=== PATIENT | female | born 1940 | race Caucasian/White ===

== ENCOUNTER 2020-03-11 02:19 | Inpatient (IN) | payer MEDICARE, OTHER, MEDICAID ==
[2020-03-11] MEDS ORDERED: Sodium Chloride 0.9% 1,000 ML IV SCH (02:30)
--- NOTE | 2020-03-11 02:35 | EDM.PDOC ---
ED HPI GENERAL MEDICAL PROBLEM - General Chief Complaint: Behavioral/Psych Stated Complaint: Hallucinating Time Seen by Provider: 03/11/20 02:20 Source of Information: Reports: Patient, EMS, Detention Records History Limitations: Reports: Other (Hallucinations and confusion) - History of Present Illness INITIAL COMMENTS - FREE TEXT/NARRATIVE: Patient to the emergency department by EMS from [facility] with advise she is been having increased confusion and hallucinations for the last couple of days. The patient also has not been taking her medication or fluids well today. The patient denies any complaints however she does appear to be seeing people who are not here including someone called Arie. The patient does wear oxygen at 2 L nasal cannula [id number] which is normal for her. Onset: Gradual Duration: Day(s): Severity: Mild Improves with: Reports: None Worsens with: Reports: None Associated Symptoms: Reports: Confusion. Denies: Cough, Nausea/Vomiting, Shortness of Breath Treatments P[employer]IV[employer]ER: Reports: Other (see below) (none) - Related Data Allergies Allergy/AdvReac Type Severity Reaction Status Date / Time tetanus and diphtheria AdvReac Mild Rash Verified 07/30/13 16:42 toxoids [Tetanus&Diphtheria Toxoid] amlodipine besylate AdvReac Cough Verified 01/11/20 13:32 [From Norvasc] clonidine HCl [From Catapres] AdvReac Cough Verified 01/11/20 13:32 gabapentin AdvReac Cough Verified 01/11/20 13:32 irbesartan [From Avapro] AdvReac Cough Verified 01/11/20 13:32 losartan potassium AdvReac Cough Verified 01/11/20 13:32 [From Cozaar] pregabalin [From Lyrica] AdvReac Cough Verified 01/11/20 13:32 Home Meds: Home Meds Aspirin [Halfprin] 81 mg PO DAILY 04/27/15 [History] Acetaminophen [Tylenol] 650 mg PO Q4HR 04/28/15 [History] Fluticasone Propionate [Flonase] 1 sprays NASBOTH DAILY PRN 04/28/15 [History] diphenhydrAMINE [Benadryl] 25 mg PO Q6H PRN 04/28/15 [History] DULoxetine [Cymbalta] 30 mg PO DAILY 05/03/15 [History] Magnesium Oxide 250 mg PO BIDM 05/03/15 [History] Nystatin [Nystatin Crm] 30 gm TOP BID 05/03/15 [History] Sennosides/Docusate Sodium [Senna-S Tablet] 1 each PO BID PRN 05/03/15 [History] Sodium Chloride 1 gm PO DAILY 05/03/15 [History] carvediloL [Coreg] 3.125 mg PO BID 05/03/15 [History] Acetaminophen [Tylenol] 650 mg PO Q4H PRN #0 tablet 05/07/15 [Rx] Cefdinir 300 mg PO BID #14 capsule 05/07/15 [Rx] Loperamide [Imodium] 2 mg PO Q4H PRN #0 cap 05/07/15 [Rx] Magnesium Hydroxide [Milk of Magnesia] 30 ml PO DAILY PRN #0 cup 05/07/15 [Rx] Menthol/Methyl Salicylate [Icy Hot] 1 applic TOP BID PRN #0 tube 05/07/15 [Rx] Potassium Chloride [Klor-Con 10] 20 meq PO TIDMEALS #0 05/07/15 [Rx] QUEtiapine [SEROquel] 25 mg PO BEDTIME #0 05/07/15 [Rx] Ranitidine [Zantac] 150 mg PO DAILY #0 05/07/15 [Rx] fentaNYL [Duragesic] 25 mcg TRDERM Q72H #10 patch 05/07/15 [Rx] oxyCODONE 5 mg PO Q4H #30 tablet 05/07/15 [Rx] Past Medical History 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 Denies: Abdominal Pain, Nausea, Vomiting : Reports: No Symptoms Musculoskeletal: Reports: No Symptoms Skin: Reports: No Symptoms Neurological: Reports: Confusion Psychiatric: Reports: Hallucinations ED EXAM, GENERAL - Physical Exam Exam: See Below Exam Limited By: No Limitations General Appearance: Alert, WD/WN, No Apparent Distress Head: Atraumatic, Normocephalic Neck: Normal Inspection, Supple, Non-Tender Respiratory/Chest: No Respiratory Distress, Lungs Clear, Normal Breath Sounds, Chest Non-Tender Cardiovascular: Normal Peripheral Pulses, Regular Rate, Rhythm, Systolic Murmur Peripheral Pulses: 2+: Radial (L) GI/Abdominal: Soft, Non-Tender Back Exam: Normal Inspection Extremities: Normal Inspection, Normal Capillary Refill Neurological: Alert, Disoriented Skin Exam: Warm, Dry, Intact, Normal Color Course - Vital Signs Text/Narrative:: Patient was evaluated emergency department, the white count is slightly el evated, general chemistries are essentially negative magnesium is low. Chest x- ray is a poor story feeling makes it difficult to interpret however there is no obvious infiltrates. The radiology reading still pending. The patient does have IV normal saline at 80 mL an hour. The patient be given Rocephin 2 g IV now and 1 g every 24 hours after that. The patient does have a urinary tract infection I suspect this is causing her altered mental status. Therefore, the patient will be admitted to the hospital for IV antibiotics, IV fluids and replacement of her magnesium. The patient will have repeat labs tomorrow and changes to her orders will be made as indicated. I suspect that the patient will be in the hospital for greater than 2 days. - Orders/Labs/Meds Orders: Active Orders 24 hr Category Date Time Status Patient Status Manage Transfer [TRANSFER] Routine ADT 03/11/20 03:02 Ordered CXR [Chest 1V Frontal] [CR] Stat Exams 03/11/20 02:29 Taken CULTURE URINE [RM] Stat Lab 03/11/20 02:50 Received Sodium Chloride 0.9% [Normal Saline] 1,000 ml Med 03/11/20 02:30 Active IV ASDIRECTED Resuscitation Status Stat Resus Stat 03/11/20 03:15 Ordered Medication Orders Sodium Chloride (Normal Saline) 1,000 mls @ 100 mls/hr IV ASDIRECTED DUSTY Last Admin: 03/11/20 03:07 Dose: 100 mls/hr Documented by: Labs: Laboratory Tests 03/11/20 03/11/20 03/11/20 Range/Units 02:41 02:41 02:50 WBC 10.4 H (5.0-10.0) 10^3/uL RBC 4.53 (4.00-5.50) 10^6/uL Hgb 14.5 (12.0-16.0) g/dL Hct 45.7 (37.0-47.0) % MCV 100.9 H (82.0-94.0) fL MCH 32.0 (27.0-32.0) pg MCHC 31.7 L (33.0-38.0) g/dL RDW Coeff of Norma 13.1 (11.0-15.0) % Plt Count 212 (150-400) 10^3/uL Neut % (Auto) 69.8 (35-85) % Lymph % (Auto) 21.1 (10-55) % [place] % (Auto) 7.0 (0-16) % Eos % (Auto) 2.0 (0-5) % Baso % (Auto) 0.1 (0-3) % Neut # (Auto) 7.24 H (1.80-7.00) 10^3/uL Lymph # (Auto) 2.19 (1.00-4.80) 10^3/uL [place] # (Auto) 0.73 (0.00-0.80) 10^3/uL Eos # (Auto) 0.21 (0.00-0.45) 10^3/uL Baso # (Auto) 0.01 10^3/uL Sodium 140 (136-145) mEq/L Potassium 3.8 (3.5-5.0) mEq/L Chloride 101 (98-106) mEq/L Carbon Dioxide 37 H (21-32) mmol/L BUN 13 (7-18) mg/dL Creatinine 0.7 (0.6-1.0) mg/dL Est Cr Clr Drug Dosing TNP Estimated GFR (MDRD) > 60 (>=60) mL/min Glucose 104 H (75-99) mg/dL Calcium 8.9 (8.4-10.1) mg/dL Magnesium 1.6 L (1.8-2.4) mg/dL Total Bilirubin 0.8 (0.0-1.0) mg/dL AST 32 (15-37) U/L ALT 9 L (12-78) U/L Alkaline Phosphatase 156 H (46-116) U/L Total Protein 8.3 H (6.4-8.2) g/dL Albumin 2.7 L (3.4-5.0) g/dL Urine Color Dark yellow (YELLOW) Urine Appearance Slightly cloudy (CLEAR) Urine pH 5.5 (4.5-8.0) Ur Specific [place] >= 1.030 H (1.003-1.020) Urine Protein Negative (NEGATIVE) mg/dL Urine Glucose (UA) Negative (NEGATIVE) mg/dL Urine Ketones Negative (NEGATIVE) mg/dL Urine Occult Blood Small H (NEGATIVE) Urine Nitrite Positive H (NEGATIVE) Urine Bilirubin Negative (NEGATIVE) Urine Urobilinogen 1.0 (0.2-1.0) EU/dL Ur Leukocyte Esterase Negative (NEGATIVE) Urine RBC 5-10 H (0-5) /HPF Urine WBC 0-5 (0-5) /HPF Ur Squamous Epith Cells Rare (NOT SEEN) /HPF Urine Bacteria Many H (NOT SEEN) /HPF Urine Mucus Few H (NOT SEEN) /HPF Meds: Medications Generic Name Dose Route Start Last Admin Trade Name Freq PRN Reason Stop Dose Admin Sodium Chloride 1,000 mls @ 100 mls/hr 03/11/20 02:30 03/11/20 03:07 Normal Saline IV 100 mls/hr ASDIRECTED DUSTY Administration Departure - Departure Time of Disposition: 03:18 Disposition: Admitted As Inpatient 65 Condition: Good Clinical Impression: Urinary tract infection, Altered mental status, Hypomagnesemia - Discharge Information *PRESCRIPTION DRUG MONITORING PROGRAM REVIEWED*: Not Applicable *COPY OF PRESCRIPTION DRUG MONITORING REPORT IN PATIENT FIDELINA: Not Applicable Forms: ED Department Discharge - Problem List & Annotations (1) Altered mental status SNOMED Code(s): 493294844 Code(s): R41.82 - ALTERED MENTAL STATUS, UNSPECIFIED Status: Acute Priority: High Qualifiers: Altered mental status type: unspecified Qualified Code(s): R41.82 - Altered mental status, unspecified (2) Urinary tract infection SNOMED Code(s): 27829323 Code(s): N39.0 - URINARY TRACT INFECTION, SITE NOT SPECIFIED Status: Acute Priority: High Qualifiers: Encounter type: initial encounter (3) Hypomagnesemia SNOMED Code(s): 760376959 Code(s): E83.42 - HYPOMAGNESEMIA Status: Chronic Priority: High Onset Date: 05/07/15 - Problem List Review Problem List Initiated/Reviewed/Updated: Yes - My Orders Last 24 Hours: My Active Orders 03/11/20 02:29 CXR [Chest 1V Frontal] [CR] Stat 03/11/20 02:30 Sodium Chloride 0.9% [Normal Saline] 1,000 ml IV ASDIRECTED 03/11/20 02:50 CULTURE URINE [RM] Stat 03/11/20 03:02 Patient Status Manage Transfer [TRANSFER] Routine 03/11/20 03:15 Resuscitation Status Stat - Assessment/Plan Last 24 Hours: My Active Orders 03/11/20 02:29 CXR [Chest 1V Frontal] [CR] Stat 03/11/20 02:30 Sodium Chloride 0.9% [Normal Saline] 1,000 ml IV ASDIRECTED 03/11/20 02:50 CULTURE URINE [RM] Stat 03/11/20 03:02 Patient Status Manage Transfer [TRANSFER] Routine 03/11/20 03:15 Resuscitation Status Stat Plan: The patient's past medical history, past surgical history, social history and past family medical history was reviewed see the nursing notes for details.
[2020-03-11 03:00] LABS: CHLORIDE,CL 101 mEq/L (98-106); SODIUM,NA 140 mEq/L (136-145)
[2020-03-11] MEDS ORDERED: Magnesium Sulfate/D5W 2 GM in Premix Bag 1 BAG IV ONE (03:49)
[2020-03-11] MEDS ORDERED: fentaNYL 25 MCG/HR Transdermal Patch TRDERM SCH (03:49)
[2020-03-11] MEDS ORDERED: Acetaminophen 325 MG Tab PO PRN (03:49)
[2020-03-11] MEDS ORDERED: oxyCODONE 5 MG Tab PO SCH (03:49)
[2020-03-11] MEDS ORDERED: Bisacodyl 5 MG Tab PO PRN (04:28)
[2020-03-11] MEDS ORDERED: cefTRIAXone 2 GM Vial IVPUSH ONE (04:30)
[2020-03-11] MEDS: Sodium Chloride 0.9% 1,000 ML IV SCH ×2 (04:45→14:03)
[2020-03-11] MEDS ORDERED: Famotidine 20 MG Tab PO SCH (08:00)
[2020-03-11] MEDS ORDERED: DULoxetine 30 MG Cap PO SCH (08:00)
[2020-03-11] MEDS ORDERED: Potassium Chloride 10 MEQ Tab.ER PO SCH (08:00)
[2020-03-11] MEDS ORDERED: Nystatin Crm 30 GM Tube TOP SCH (08:00)
[2020-03-11] MEDS ORDERED: Non-Formulary Medication 1 Each (Ranitidine [Zantac] 150 MG) PO SCH (08:00)
[2020-03-11] MEDS: Carvedilol 3.125 MG Tab PO SCH ×2 (08:20→19:59)
[2020-03-11] MEDS: DULoxetine 30 MG Cap PO SCH (08:21)
[2020-03-11] MEDS: Aspirin 81 MG Tab.EC PO SCH (08:21)
[2020-03-11] MEDS: Gabapentin 300 MG Cap PO SCH ×3 (08:22→19:58)
[2020-03-11] MEDS: oxyCODONE 5 MG Tab PO SCH (08:22)
[2020-03-11] MEDS: Multivitamin Tab PO SCH (08:23)
[2020-03-11] MEDS: Enoxaparin 40 MG/0.4 ML Syringe SUBCUT SCH (08:24)
[2020-03-11] MEDS: fentaNYL 100 MCG/HR Transdermal Patch TRDERM SCH (08:28)
--- NOTE | 2020-03-11 11:51 | PCM.PN ---
- General Info Date of Service: 03/11/20 Admission Dx/Problem (Free Text): AMS, confusion Functional Status: Reports: Tolerating Diet - Review of Systems General: Reports: No Symptoms. Denies: Fever HEENT: Reports: No Symptoms Pulmonary: Reports: No Symptoms Cardiovascular: Reports: No Symptoms Gastrointestinal: Reports: No Symptoms Genitourinary: Reports: No Symptoms Musculoskeletal: Reports: No Symptoms Skin: Reports: No Symptoms Neurological: Reports: Confusion Psychiatric: Reports: Confusion - Patient Data Vitals - Most Recent: Last Vital Signs Temp 37.1 C 03/11/20 11:45 Pulse 87 03/11/20 11:45 Resp 20 03/11/20 11:45 BP 159/55 H 03/11/20 11:45 Pulse Ox 96 03/11/20 11:45 Weight - Most Recent: 93.531 kg I&O - Last 24 Hours: Intake & Output 03/10/20 03/11/20 03/11/20 22:59 06:59 14:59 Intake Total 440 Output Total 1 Balance 439 Lab Results Last 24 Hours: Laboratory Results - last 24 hr 03/11/20 03/11/20 03/11/20 Range/Units 02:41 02:41 02:50 WBC 10.4 H (5.0-10.0) 10^3/uL RBC 4.53 (4.00-5.50) 10^6/uL Hgb 14.5 (12.0-16.0) g/dL Hct 45.7 (37.0-47.0) % MCV 100.9 H (82.0-94.0) fL MCH 32.0 (27.0-32.0) pg MCHC 31.7 L (33.0-38.0) g/dL RDW Coeff of Norma 13.1 (11.0-15.0) % Plt Count 212 (150-400) 10^3/uL Neut % (Auto) 69.8 (35-85) % Lymph % (Auto) 21.1 (10-55) % [place] % (Auto) 7.0 (0-16) % Eos % (Auto) 2.0 (0-5) % Baso % (Auto) 0.1 (0-3) % Neut # (Auto) 7.24 H (1.80-7.00) 10^3/uL Lymph # (Auto) 2.19 (1.00-4.80) 10^3/uL [place] # (Auto) 0.73 (0.00-0.80) 10^3/uL Eos # (Auto) 0.21 (0.00-0.45) 10^3/uL Baso # (Auto) 0.01 10^3/uL Sodium 140 (136-145) mEq/L Potassium 3.8 (3.5-5.0) mEq/L Chloride 101 (98-106) mEq/L Carbon Dioxide 37 H (21-32) mmol/L BUN 13 (7-18) mg/dL Creatinine 0.7 (0.6-1.0) mg/dL Est Cr Clr Drug Dosing TNP Estimated GFR (MDRD) > 60 (>=60) mL/min Glucose 104 H (75-99) mg/dL Calcium 8.9 (8.4-10.1) mg/dL Magnesium 1.6 L (1.8-2.4) mg/dL Total Bilirubin 0.8 (0.0-1.0) mg/dL AST 32 (15-37) U/L ALT 9 L (12-78) U/L Alkaline Phosphatase 156 H (46-116) U/L Total Protein 8.3 H (6.4-8.2) g/dL Albumin 2.7 L (3.4-5.0) g/dL Urine Color Dark yellow (YELLOW) Urine Appearance Slightly cloudy (CLEAR) Urine pH 5.5 (4.5-8.0) Ur Specific [place] >= 1.030 H (1.003-1.020) Urine Protein Negative (NEGATIVE) mg/dL Urine Glucose (UA) Negative (NEGATIVE) mg/dL Urine Ketones Negative (NEGATIVE) mg/dL Urine Occult Blood Small H (NEGATIVE) Urine Nitrite Positive H (NEGATIVE) Urine Bilirubin Negative (NEGATIVE) Urine Urobilinogen 1.0 (0.2-1.0) EU/dL Ur Leukocyte Esterase Negative (NEGATIVE) Urine RBC 5-10 H (0-5) /HPF Urine WBC 0-5 (0-5) /HPF Ur Squamous Epith Cells Rare (NOT SEEN) /HPF Urine Bacteria Many H (NOT SEEN) /HPF Urine Mucus Few H (NOT SEEN) /HPF Med Orders - Current: Current Medications Acetaminophen (Tylenol) 650 mg PO Q4H PRN PRN Reason: Pain/Fever Aspirin (Halfprin) 81 mg PO DAILY REPLACED BY [facility] Last Admin: 03/11/20 08:21 Dose: 81 mg Documented by: Bisacodyl (Dulcolax) 5 - 10 mg PO DAILY PRN PRN Reason: Constipation Carvedilol (Coreg) 3.125 mg PO BID REPLACED BY [facility] Last Admin: 03/11/20 08:20 Dose: 3.125 mg Documented by: Duloxetine HCl (Cymbalta) 60 mg PO DAILY REPLACED BY [facility] Last Admin: 03/11/20 08:21 Dose: 60 mg Documented by: Enoxaparin Sodium (Lovenox) 40 mg SUBCUT Q24H REPLACED BY [facility] Last Admin: 03/11/20 08:24 Dose: Not Given Documented by: Famotidine (Pepcid) 20 mg PO Q48H REPLACED BY [facility] Fentanyl (Duragesic) 100 mcg TRDERM Q72H REPLACED BY [facility] Last Admin: 03/11/20 08:28 Dose: 100 mcg Documented by: Gabapentin (Neurontin) 300 mg PO TID REPLACED BY [facility] Last Admin: 03/11/20 08:22 Dose: 300 mg Documented by: Sodium Chloride (Normal Saline) 1,000 mls @ 80 mls/hr IV ASDIRECTED REPLACED BY [facility] Last Admin: 03/11/20 04:45 Dose: 80 mls/hr Documented by: Lorazepam (Ativan) 0.25 mg PO BEDTIME REPLACED BY [facility] Melatonin (Melatonin) 6 mg PO BEDTIME REPLACED BY [facility] Multivitamins/Minerals/Vitamin C (Tab-A-Jayden) 1 tab PO DAILY REPLACED BY [facility] Last Admin: 03/11/20 08:23 Dose: 1 tab Documented by: Oxycodone HCl (Oxycodone) 5 mg PO DAILY REPLACED BY [facility] Last Admin: 03/11/20 08:22 Dose: 5 mg Documented by: Senna/Docusate Sodium (Senna Plus) 1 tab PO DAILY REPLACED BY [facility] Last Admin: 03/11/20 08:23 Dose: 1 tab Documented by: Discontinued Medications Ceftriaxone Sodium (Rocephin) 2 gm IVPUSH ONETIME ONE Stop: 03/11/20 04:31 Last Admin: 03/11/20 04:50 Dose: 2 gm Documented by: Duloxetine HCl (Cymbalta) 30 mg PO DAILY REPLACED BY [facility] Fentanyl (Duragesic) 25 mcg TRDERM Q72H REPLACED BY [facility] Last Admin: 03/11/20 04:17 Dose: Not Given Documented by: Sodium Chloride (Normal Saline) 1,000 mls @ 100 mls/hr IV ASDIRECTED REPLACED BY [facility] Last Admin: 03/11/20 03:07 Dose: 100 mls/hr Documented by: Magnesium Sulfate/Dextrose 2 (gm/ Premix) 200 mls @ 100 mls/hr IV ONETIME ONE Stop: 03/11/20 05:48 Last Admin: 03/11/20 04:56 Dose: 100 mls/hr Documented by: Melatonin (Melatonin) 5 mg PO BEDTIME REPLACED BY [facility] Non-Formulary Medication (Ranitidine [Zantac]) 150 mg PO DAILY REPLACED BY [facility] Nystatin (Nystatin Crm) 30 gm TOP BID DUSTY Oxycodone HCl (Oxycodone) 5 mg PO Q4H REPLACED BY [facility] Last Admin: 03/11/20 04:17 Dose: Not Given Documented by: Potassium Chloride (Klor-Con 10) 20 meq PO TIDMEALS DUSTY Quetiapine Fumarate (Seroquel) 25 mg PO BEDTIME DUSTY - Exam Quality Assessment: Supplemental Oxygen General: Alert, Other (pt is still confused and does get combative at time ac ording to the nursing staff) Neck: Supple, Trachea Midline Lungs: Clear to Auscultation, Normal Respiratory Effort Cardiovascular: Regular Rate, Regular Rhythm, Murmurs GI/Abdominal Exam: Soft, Non-Tender Back Exam: Normal Inspection, Full Range of Motion Extremities: Normal Inspection, Normal Range of Motion, Normal Capillary Refill Peripheral Pulses: 2+: Radial (L) Skin: Warm, Dry, Intact Neurological: No New Focal Deficit Psy/Mental Status: Alert, Normal Affect Sepsis Event Note - Evaluation Sepsis Screening Result: No Definite Risk - Focused Exam Vital Signs: Vital Signs Temp Pulse Pulse Resp BP BP Pulse Ox 03/11/20 11:45 37.1 C 87 20 159/55 H 96 03/11/20 08:20 91 114/62 03/11/20 08:00 36.3 C 91 18 114/62 94 L 03/11/20 03:49 37.6 C 92 20 168/86 H 98 - Problem List & Annotations (1) Altered mental status SNOMED Code(s): 033472740 Code(s): R41.82 - ALTERED MENTAL STATUS, UNSPECIFIED Status: Acute Priority: High Current Visit: No Qualifiers: Altered mental status type: unspecified Qualified Code(s): R41.82 - Altered mental status, unspecified (2) Urinary tract infection SNOMED Code(s): 73190149 Code(s): N39.0 - URINARY TRACT INFECTION, SITE NOT SPECIFIED Status: Acute Priority: High Current Visit: No Qualifiers: Encounter type: initial encounter (3) Hypomagnesemia SNOMED Code(s): 527397615 Code(s): E83.42 - HYPOMAGNESEMIA Status: Chronic Priority: High Current Visit: No Onset Date: 05/07/15 - Problem List Review Problem List Initiated/Reviewed/Updated: Yes - My Orders Last 24 Hours: My Active Orders 03/11/20 02:29 CXR [Chest 1V Frontal] [CR] Stat 03/11/20 02:50 CULTURE URINE [RM] Stat 03/11/20 03:15 Resuscitation Status Stat 03/11/20 03:49 Acetaminophen [TylenoL] 650 mg PO Q4H PRN Sodium Chloride 0.9% [Normal Saline] 1,000 ml IV ASDIRECTED 03/11/20 03:49 Patient Status [ADT] Routine Height and Weight [RC] .PRN Intake and Output [RC] 0600,1800 Oxygen Therapy [RC] 2355 Up to Chair [RC] .PRN Vital Signs [RC] 0000,0400,0800,1200,1600,2000 03/11/20 04:28 bisacodyL [Dulcolax] 5 - 10 mg PO DAILY PRN 03/11/20 Breakfast 2 Gram Sodium Diet [DIET] Aspirin [Halfprin] 81 mg PO DAILY DULoxetine [Cymbalta] 60 mg PO DAILY Docusate Sodium/Sennosides [Senna Plus] 1 tab PO DAILY Famotidine [Pepcid] 20 mg PO Q48H Gabapentin [Neurontin] 300 mg PO TID Multivitamins [Tab-A-Jayden] 1 tab PO DAILY carvediloL [Coreg] 3.125 mg PO BID fentaNYL [Duragesic] 100 mcg TRDERM Q72H oxyCODONE 5 mg PO DAILY 03/11/20 09:00 Enoxaparin [Lovenox] 40 mg SUBCUT Q24H 03/11/20 20:00 LORazepam [Ativan] 0.25 mg PO BEDTIME Melatonin 6 mg PO BEDTIME 08/31/20 05:11 CBC WITH AUTO DIFF [HEME] DAILY MAGNESIUM [CHEM] AM 03/12/20 05:15 BASIC METABOLIC PANEL,BMP [CHEM] DAILY 03/13/20 05:11 CBC WITH AUTO DIFF [HEME] DAILY 03/13/20 05:15 BASIC METABOLIC PANEL,BMP [CHEM] DAILY 03/14/20 05:11 CBC WITH AUTO DIFF [HEME] DAILY - Assessment Assessment:: no change in pt at this point, will continue current t x plan and make changes as needed
[2020-03-11] MEDS: Famotidine 20 MG Tab **OWN MED PO SCH (17:14)
[2020-03-11] MEDS: LORazepam 0.5 MG Tab PO SCH (19:59)
[2020-03-11] MEDS: Melatonin 3 MG Tab PO SCH (19:59)
[2020-03-11] MEDS ORDERED: Melatonin 3 MG Tab PO SCH (20:00)
[2020-03-11] MEDS ORDERED: QUEtiapine 25 MG Tab PO SCH (20:00)
[2020-03-12] MEDS: Sodium Chloride 0.9% 1,000 ML IV SCH ×2 (02:36→15:08)
[2020-03-12] MEDS: cefTRIAXone 1 GM Vial IVPUSH SCH (04:22)
[2020-03-12 07:47] LABS: CHLORIDE,CL 106 mEq/L (98-106); SODIUM,NA 142 mEq/L (136-145)
[2020-03-12] MEDS: Enoxaparin 40 MG/0.4 ML Syringe SUBCUT SCH ×2 (08:35→08:41)
[2020-03-12] MEDS: Aspirin 81 MG Tab.EC PO SCH (08:36)
[2020-03-12] MEDS: Gabapentin 300 MG Cap PO SCH ×3 (08:36→20:07)
[2020-03-12] MEDS: DULoxetine 30 MG Cap PO SCH (08:36)
[2020-03-12] MEDS: Carvedilol 3.125 MG Tab PO SCH ×2 (08:37→20:08)
[2020-03-12] MEDS: Multivitamin Tab PO SCH (08:37)
[2020-03-12] MEDS: oxyCODONE 5 MG Tab PO SCH (08:37)
--- NOTE | 2020-03-12 09:11 | PCM.PN ---
- General Info Date of Service: 03/12/20 Admission Dx/Problem (Free Text): AMS, confusion Functional Status: Reports: Pain Controlled, Tolerating Diet. Denies: Ambulating - Review of Systems General: Reports: Weakness, Fatigue, Malaise. Denies: Fever HEENT: Denies: Ear Pain, Sinus Congestion, Sore Throat Pulmonary: Denies: Shortness of Breath, Cough Cardiovascular: Denies: Chest Pain, Edema, Lightheadedness Gastrointestinal: Denies: Abdominal Pain, Nausea, Vomiting Genitourinary: Reports: Incontinence Musculoskeletal: Reports: Back Pain Skin: Reports: No Symptoms Neurological: Reports: No Symptoms - Patient Data Vitals - Most Recent: Last Vital Signs Temp 98.0 F 03/12/20 08:00 Pulse 82 03/12/20 08:37 Resp 20 03/12/20 08:00 BP 129/46 L 03/12/20 08:37 Pulse Ox 95 03/12/20 08:00 Weight - Most Recent: 206 lb 3.2 oz I&O - Last 24 Hours: Intake & Output 03/11/20 03/12/20 03/12/20 22:59 06:59 14:59 Intake Total 200 1180 Balance 200 1180 Lab Results Last 24 Hours: Laboratory Results - last 24 hr 03/12/20 03/12/20 Range/Units 05:11 05:11 WBC 8.8 (5.0-10.0) 10^3/uL RBC 4.04 (4.00-5.50) 10^6/uL Hgb 12.7 (12.0-16.0) g/dL Hct 41.7 (37.0-47.0) % MCV 103.2 H (82.0-94.0) fL MCH 31.4 (27.0-32.0) pg MCHC 30.5 L (33.0-38.0) g/dL RDW Coeff of Norma 13.4 (11.0-15.0) % Plt Count 208 (150-400) 10^3/uL Neut % (Auto) 59.9 (35-85) % Lymph % (Auto) 21.2 (10-55) % [place] % (Auto) 9.5 (0-16) % Eos % (Auto) 9.2 H (0-5) % Baso % (Auto) 0.2 (0-3) % Neut # (Auto) 5.26 (1.80-7.00) 10^3/uL Lymph # (Auto) 1.86 (1.00-4.80) 10^3/uL [place] # (Auto) 0.83 H (0.00-0.80) 10^3/uL Eos # (Auto) 0.81 H (0.00-0.45) 10^3/uL Baso # (Auto) 0.02 10^3/uL Sodium 142 (136-145) mEq/L Potassium 3.8 (3.5-5.0) mEq/L Chloride 106 (98-106) mEq/L Carbon Dioxide 34 H (21-32) mmol/L BUN 9 (7-18) mg/dL Creatinine 0.6 (0.6-1.0) mg/dL Est Cr Clr Drug Dosing 61.86 mL/min Estimated GFR (MDRD) > 60 (>=60) mL/min Glucose 90 (75-99) mg/dL Calcium 8.4 (8.4-10.1) mg/dL Magnesium 1.7 L (1.8-2.4) mg/dL Bradford Results Last 24 Hours: Microbiology 03/11/20 02:50 Urine Culture - Preliminary Urine, Catheterized Gram Negative Rods Med Orders - Current: Current Medications Acetaminophen (Tylenol) 650 mg PO Q4H PRN PRN Reason: Pain/Fever Aspirin (Halfprin) 81 mg PO DAILY [facility] Last Admin: 03/12/20 08:36 Dose: 81 mg Documented by: Bisacodyl (Dulcolax) 5 - 10 mg PO DAILY PRN PRN Reason: Constipation Carvedilol (Coreg) 3.125 mg PO BID [facility] Last Admin: 03/12/20 08:37 Dose: 3.125 mg Documented by: Ceftriaxone Sodium (Rocephin) 1 gm IVPUSH Q24H [facility] Last Admin: 03/12/20 04:22 Dose: 1 gm Documented by: Duloxetine HCl (Cymbalta) 60 mg PO DAILY [facility] Last Admin: 03/12/20 08:36 Dose: 60 mg Documented by: Enoxaparin Sodium (Lovenox) 40 mg SUBCUT Q24H [facility] Last Admin: 03/12/20 08:41 Dose: Not Given Documented by: Famotidine (Pepcid) 20 mg PO Q48H [facility] Last Admin: 03/11/20 17:14 Dose: 20 mg Documented by: Fentanyl (Duragesic) 100 mcg TRDERM Q72H [facility] Last Admin: 03/11/20 08:28 Dose: 100 mcg Documented by: Gabapentin (Neurontin) 300 mg PO TID [facility] Last Admin: 03/12/20 08:36 Dose: 300 mg Documented by: Sodium Chloride (Normal Saline) 1,000 mls @ 80 mls/hr IV ASDIRECTED [facility] Last Admin: 03/12/20 02:36 Dose: 80 mls/hr Documented by: Lorazepam (Ativan) 0.25 mg PO BEDTIME [facility] Last Admin: 03/11/20 19:59 Dose: 0.25 mg Documented by: Melatonin (Melatonin) 6 mg PO BEDTIME [facility] Last Admin: 03/11/20 19:59 Dose: 6 mg Documented by: Multivitamins/Minerals/Vitamin C (Tab-A-Jayden) 1 tab PO DAILY [facility] Last Admin: 03/12/20 08:37 Dose: 1 tab Documented by: Oxycodone HCl (Oxycodone) 5 mg PO DAILY [facility] Last Admin: 03/12/20 08:37 Dose: 5 mg Documented by: Senna/Docusate Sodium (Senna Plus) 1 tab PO DAILY [facility] Last Admin: 03/12/20 08:40 Dose: 1 tab Documented by: Discontinued Medications Ceftriaxone Sodium (Rocephin) 2 gm IVPUSH ONETIME ONE Stop: 03/11/20 04:31 Last Admin: 03/11/20 04:50 Dose: 2 gm Documented by: Duloxetine HCl (Cymbalta) 30 mg PO DAILY [facility] Famotidine (Pepcid) 20 mg PO Q48H [facility] Last Admin: 03/11/20 17:16 Dose: Not Given Documented by: Fentanyl (Duragesic) 25 mcg TRDERM Q72H [facility] Last Admin: 03/11/20 04:17 Dose: Not Given Documented by: Sodium Chloride (Normal Saline) 1,000 mls @ 100 mls/hr IV ASDIRECTED [facility] Last Admin: 03/11/20 03:07 Dose: 100 mls/hr Documented by: Magnesium Sulfate/Dextrose 2 (gm/ Premix) 200 mls @ 100 mls/hr IV ONETIME ONE Stop: 03/11/20 05:48 Last Admin: 03/11/20 04:56 Dose: 100 mls/hr Documented by: Melatonin (Melatonin) 5 mg PO BEDTIME [facility] Non-Formulary Medication (Ranitidine [Zantac]) 150 mg PO DAILY [facility] Nystatin (Nystatin Crm) 30 gm TOP BID [facility] Oxycodone HCl (Oxycodone) 5 mg PO Q4H [facility] Last Admin: 03/11/20 04:17 Dose: Not Given Documented by: Potassium Chloride (Klor-Con 10) 20 meq PO TIDMEALS [facility] Quetiapine Fumarate (Seroquel) 25 mg PO BEDTIME [facility] - Exam Quality Assessment: Supplemental Oxygen General: Alert, Oriented HEENT: Mucous Membr. Moist/[place] Neck: Supple Lungs: Clear to Auscultation, Normal Respiratory Effort Cardiovascular: Regular Rate, Regular Rhythm GI/Abdominal Exam: Normal Bowel Sounds, Soft, Non-Tender Extremities: Normal Inspection, No Pedal Edema Skin: Warm, Dry Neurological: No New Focal Deficit Sepsis Event Note - Evaluation Sepsis Screening Result: No Definite Risk - Focused Exam Vital Signs: Vital Signs Temp Pulse Pulse Resp BP BP Pulse Ox 03/12/20 08:37 82 129/46 L 03/12/20 08:00 98.0 F 82 20 94/48 L 95 03/12/20 04:00 97.2 F 74 20 154/49 H 93 L 03/12/20 00:00 98.2 F 84 16 126/59 L 96 03/11/20 23:55 Pulse Ox 03/12/20 08:37 03/12/20 08:00 03/12/20 04:00 03/12/20 00:00 03/11/20 23:55 96 - Problem List & Annotations (1) Altered mental status SNOMED Code(s): 805494383 Code(s): R41.82 - ALTERED MENTAL STATUS, UNSPECIFIED Status: Acute Priority: High Current Visit: Yes Qualifiers: Altered mental status type: unspecified Qualified Code(s): R41.82 - Altered mental status, unspecified (2) Urinary tract infection SNOMED Code(s): 34123707 Code(s): N39.0 - URINARY TRACT INFECTION, SITE NOT SPECIFIED Status: Acute Priority: High Current Visit: Yes Qualifiers: Encounter type: initial encounter (3) Hypomagnesemia SNOMED Code(s): 082425463 Code(s): E83.42 - HYPOMAGNESEMIA Status: Chronic Priority: High Current Visit: Yes Onset Date: 05/07/15 - Problem List Review Problem List Initiated/Reviewed/Updated: Yes - Assessment Assessment:: Altered Mental Status UTI Hypomagnesemia no change in pt at this point, will continue current t x plan and make changes as needed - Plan Plan:: Patient is alert, oriented today. Feeding self. Answers questions appropriately. Denies any pain. Lung sounds are clear, abdomen is soft and nontender. WBC is normal this am at 8.8. BMP stable. Electrolytes are normal. Magnesium improved to 1.7. Will continue with IV antibiotics. Possible discharge back to [facility] tomorrow.
[2020-03-12] MEDS ORDERED: QUEtiapine 25 MG Tab PO SCH (20:00)
[2020-03-12] MEDS: Melatonin 3 MG Tab PO SCH (20:07)
[2020-03-12] MEDS: LORazepam 0.5 MG Tab PO SCH (20:08)
[2020-03-12] MEDS ORDERED: diphenhydrAMINE 25 MG Cap PO ONE (20:45)
[2020-03-13] MEDS: Sodium Chloride 0.9% 1,000 ML IV SCH ×2 (03:39→15:55)
[2020-03-13] MEDS: cefTRIAXone 1 GM Vial IVPUSH SCH (03:47)
[2020-03-13 07:13] LABS: CHLORIDE,CL 109 mEq/L (98-106); SODIUM,NA 143 mEq/L (136-145)
[2020-03-13] MEDS: DULoxetine 30 MG Cap PO SCH (08:25)
[2020-03-13] MEDS: oxyCODONE 5 MG Tab PO SCH (08:25)
[2020-03-13] MEDS: Carvedilol 3.125 MG Tab PO SCH ×2 (08:26→17:29)
[2020-03-13] MEDS: Multivitamin Tab PO SCH (08:26)
[2020-03-13] MEDS: Aspirin 81 MG Tab.EC PO SCH (08:26)
[2020-03-13] MEDS: Enoxaparin 40 MG/0.4 ML Syringe SUBCUT SCH (08:26)
[2020-03-13] MEDS: Gabapentin 300 MG Cap PO SCH ×3 (08:26→19:32)
[2020-03-13] MEDS: Famotidine 20 MG Tab **OWN MED PO SCH (17:28)
[2020-03-13] MEDS: Melatonin 3 MG Tab PO SCH (19:31)
[2020-03-13] MEDS: LORazepam 0.5 MG Tab PO SCH (19:31)
[2020-03-13] MEDS: QUEtiapine 25 MG Tab PO SCH (19:33)
--- NOTE | 2020-03-13 21:10 | PCM.PN ---
- General Info Date of Service: 03/13/20 Admission Dx/Problem (Free Text): AMS, confusion Functional Status: Reports: Pain Controlled. Denies: Tolerating Diet, Ambulating - Review of Systems General: Reports: Fatigue, Other (patient very groggy this am, arouses to movement, sternal rub. Was given Seroquel and Benadryl last evening and now sedated this am. ) - Patient Data Vitals - Most Recent: Last Vital Signs Temp 97.5 F 03/13/20 15:57 Pulse 80 03/13/20 17:29 Resp 20 03/13/20 15:57 BP 151/57 H 03/13/20 17:29 Pulse Ox 96 03/13/20 15:57 Weight - Most Recent: 206 lb 3.2 oz I&O - Last 24 Hours: Intake & Output 03/13/20 03/13/20 03/13/20 06:59 14:59 22:59 Intake Total 1400 1481 Balance 1400 1481 Lab Results Last 24 Hours: Laboratory Results - last 24 hr 03/13/20 03/13/20 Range/Units 06:55 06:55 WBC 7.6 (5.0-10.0) 10^3/uL RBC 3.69 L (4.00-5.50) 10^6/uL Hgb 11.7 L (12.0-16.0) g/dL Hct 38.6 (37.0-47.0) % MCV 104.6 H (82.0-94.0) fL MCH 31.7 (27.0-32.0) pg MCHC 30.3 L (33.0-38.0) g/dL RDW Coeff of Norma 13.5 (11.0-15.0) % Plt Count 200 (150-400) 10^3/uL Add Manual Diff Yes Neutrophils % (Manual) 52 (35-85) % Band Neutrophils % 0 (0-5) % Lymphocytes % (Manual) 26 (21-55) % Monocytes % (Manual) 8 (2-12) % Eosinophils % (Manual) 13 H (0-5) % Basophils % (Manual) 1 (0-3) % Sodium 143 (136-145) mEq/L Potassium 3.7 (3.5-5.0) mEq/L Chloride 109 H (98-106) mEq/L Carbon Dioxide 35 H (21-32) mmol/L BUN 10 (7-18) mg/dL Creatinine 0.7 (0.6-1.0) mg/dL Est Cr Clr Drug Dosing 53.02 mL/min Estimated GFR (MDRD) > 60 (>=60) mL/min Glucose 88 (75-99) mg/dL Calcium 7.9 L (8.4-10.1) mg/dL Bradford Results Last 24 Hours: Microbiology 03/11/20 02:50 Urine Culture - Final Urine, Catheterized Escherichia Coli Med Orders - Current: Current Medications Acetaminophen (Tylenol) 650 mg PO Q4H PRN PRN Reason: Pain/Fever Aspirin (Halfprin) 81 mg PO DAILY [facility] Last Admin: 03/13/20 08:26 Dose: 81 mg Documented by: Bisacodyl (Dulcolax) 5 - 10 mg PO DAILY PRN PRN Reason: Constipation Carvedilol (Coreg) 3.125 mg PO BIDMEALS [facility] Last Admin: 03/13/20 17:29 Dose: 3.125 mg Documented by: Ceftriaxone Sodium (Rocephin) 1 gm IVPUSH Q24H [facility] Last Admin: 03/13/20 03:47 Dose: 1 gm Documented by: Duloxetine HCl (Cymbalta) 60 mg PO DAILY [facility] Last Admin: 03/13/20 08:25 Dose: 60 mg Documented by: Enoxaparin Sodium (Lovenox) 40 mg SUBCUT Q24H [facility] Last Admin: 03/13/20 08:26 Dose: Not Given Documented by: Famotidine (Pepcid) 20 mg PO Q48H [facility] Last Admin: 03/13/20 17:28 Dose: 20 mg Documented by: Fentanyl (Duragesic) 100 mcg TRDERM Q72H [facility] Last Admin: 03/11/20 08:28 Dose: 100 mcg Documented by: Gabapentin (Neurontin) 300 mg PO TID [facility] Last Admin: 03/13/20 19:32 Dose: 300 mg Documented by: Sodium Chloride (Normal Saline) 1,000 mls @ 80 mls/hr IV ASDIRECTED [facility] Last Admin: 03/13/20 15:55 Dose: 80 mls/hr Documented by: Lorazepam (Ativan) 0.25 mg PO BEDTIME [facility] Last Admin: 09/01/20 19:31 Dose: 0.25 mg Documented by: Melatonin (Melatonin) 6 mg PO BEDTIME [facility] Last Admin: 03/13/20 19:31 Dose: 6 mg Documented by: Multivitamins/Minerals/Vitamin C (Tab-A-Jayden) 1 tab PO DAILY [facility] Last Admin: 03/13/20 08:26 Dose: 1 tab Documented by: Oxycodone HCl (Oxycodone) 5 mg PO DAILY [facility] Last Admin: 03/13/20 08:25 Dose: 5 mg Documented by: Quetiapine Fumarate (Seroquel) 12.5 mg PO BEDTIME [facility] Last Admin: 03/13/20 19:33 Dose: 12.5 mg Documented by: Senna/Docusate Sodium (Senna Plus) 1 tab PO DAILY [facility] Last Admin: 03/13/20 08:26 Dose: 1 tab Documented by: Discontinued Medications Carvedilol (Coreg) 3.125 mg PO BID [facility] Last Admin: 03/13/20 08:26 Dose: 3.125 mg Documented by: Ceftriaxone Sodium (Rocephin) 2 gm IVPUSH ONETIME ONE Stop: 03/11/20 04:31 Last Admin: 03/11/20 04:50 Dose: 2 gm Documented by: Diphenhydramine HCl (Benadryl) 25 mg PO ONETIME ONE Stop: 03/12/20 20:46 Last Admin: 03/12/20 21:12 Dose: 25 mg Documented by: Duloxetine HCl (Cymbalta) 30 mg PO DAILY [facility] Famotidine (Pepcid) 20 mg PO Q48H [facility] Last Admin: 03/11/20 17:16 Dose: Not Given Documented by: Fentanyl (Duragesic) 25 mcg TRDERM Q72H [facility] Last Admin: 03/11/20 04:17 Dose: Not Given Documented by: Sodium Chloride (Normal Saline) 1,000 mls @ 100 mls/hr IV ASDIRECTED [facility] Last Admin: 03/11/20 03:07 Dose: 100 mls/hr Documented by: Magnesium Sulfate/Dextrose 2 (gm/ Premix) 200 mls @ 100 mls/hr IV ONETIME ONE Stop: 03/11/20 05:48 Last Admin: 03/11/20 04:56 Dose: 100 mls/hr Documented by: Melatonin (Melatonin) 5 mg PO BEDTIME [facility] Non-Formulary Medication (Ranitidine [Zantac]) 150 mg PO DAILY [facility] Nystatin (Nystatin Crm) 30 gm TOP BID [facility] Oxycodone HCl (Oxycodone) 5 mg PO Q4H [facility] Last Admin: 03/11/20 04:17 Dose: Not Given Documented by: Potassium Chloride (Klor-Con 10) 20 meq PO TIDMEALS [facility] Quetiapine Fumarate (Seroquel) 25 mg PO BEDTIME [facility] Quetiapine Fumarate (Seroquel) 25 mg PO BEDTIME [facility] Last Admin: 03/12/20 20:09 Dose: 25 mg Documented by: - Exam General: Sedated Neck: Supple Lungs: Clear to Auscultation, Normal Respiratory Effort Cardiovascular: Regular Rate, Regular Rhythm GI/Abdominal Exam: Normal Bowel Sounds, Soft, Non-Tender Extremities: Normal Inspection, No Pedal Edema Skin: Warm, Dry Sepsis Event Note - Evaluation Sepsis Screening Result: No Definite Risk - Focused Exam Vital Signs: Vital Signs Temp Pulse Pulse Resp BP BP Pulse Ox 03/13/20 17:29 80 151/57 H 03/13/20 15:57 97.5 F 75 20 150/57 H 96 03/13/20 12:00 98.5 F 76 18 130/45 L 94 L - Problem List & Annotations (1) Altered mental status SNOMED Code(s): 364885417 Code(s): R41.82 - ALTERED MENTAL STATUS, UNSPECIFIED Status: Acute Priority: High Current Visit: Yes Qualifiers: Altered mental status type: unspecified Qualified Code(s): R41.82 - Altered mental status, unspecified (2) Urinary tract infection SNOMED Code(s): 29069813 Code(s): N39.0 - URINARY TRACT INFECTION, SITE NOT SPECIFIED Status: Acute Priority: High Current Visit: Yes Qualifiers: Encounter type: initial encounter (3) Hypomagnesemia SNOMED Code(s): 010293310 Code(s): E83.42 - HYPOMAGNESEMIA Status: Chronic Priority: High Current Visit: Yes Onset Date: 05/07/15 - Problem List Review Problem List Initiated/Reviewed/Updated: Yes - My Orders Last 24 Hours: My Active Orders 03/13/20 20:00 QUEtiapine [SEROqueL] 12.5 mg PO BEDTIME - Assessment Assessment:: Altered Mental Status UTI Hypomagnesemia no change in pt at this point, will continue current t x plan and make changes as needed - Plan Plan:: Patient is alert, oriented today. Feeding self. Answers questions appropriately. Denies any pain. Lung sounds are clear, abdomen is soft and nontender. WBC is normal this am at 8.8. BMP stable. Electrolytes are normal. Magnesium improved to 1.7. Will continue with IV antibiotics. Possible discharge back to [facility] tomorrow. 03-13-2020 Patient sedated this am. Was started on Seroquel last evening as [facility] had contacted us and was worried about her intermittent hallucinations and behaviors as well as anxiety. Jennifer was also contacted last night as patient was complaining of persistent itching so a dose of Benadryl was given. This am, patient arouses to stimulation. Moans but doesn't awaken. Lung sounds are clear. Abdomen appears soft, does not grimace to palpation. As we continue to make med changes, inappropriate for patient to return back to [facility]. Will reduce her Seroquel dose today for evening. Reevaluate with possible discharge back to [facility] in am. Continue IV Rocephin as urine culture shows e coli sensitive to it.
[2020-03-14] MEDS: cefTRIAXone 1 GM Vial IVPUSH SCH (03:46)
[2020-03-14] MEDS: Sodium Chloride 0.9% 1,000 ML IV SCH (04:00)
[2020-03-14] MEDS: DULoxetine 30 MG Cap PO SCH (09:10)
[2020-03-14] MEDS: Carvedilol 3.125 MG Tab PO SCH ×2 (09:10→17:30)
[2020-03-14] MEDS: Aspirin 81 MG Tab.EC PO SCH (09:11)
[2020-03-14] MEDS: Multivitamin Tab PO SCH (09:11)
[2020-03-14] MEDS: oxyCODONE 5 MG Tab PO SCH (09:11)
[2020-03-14] MEDS: Gabapentin 300 MG Cap PO SCH ×3 (09:11→19:18)
[2020-03-14] MEDS: fentaNYL 100 MCG/HR Transdermal Patch TRDERM SCH (09:16)
[2020-03-14] MEDS: Enoxaparin 40 MG/0.4 ML Syringe SUBCUT SCH ×2 (09:17→09:20)
[2020-03-14 09:27] LABS: CHLORIDE,CL 105 mEq/L (98-106); SODIUM,NA 141 mEq/L (136-145)
[2020-03-14] MEDS ORDERED: Levofloxacin/Dextrose 5%-Water 500 MG in Premix Bag 1 BAG IV SCH (12:00)
--- NOTE | 2020-03-14 16:31 | PCM.PN ---
- General Info Date of Service: 03/14/20 Admission Dx/Problem (Free Text): AMS, confusion Functional Status: Reports: Tolerating Diet. Denies: Ambulating - Review of Systems General: Reports: Weakness, Fatigue, Malaise HEENT: Denies: Sinus Congestion, Sore Throat Pulmonary: Denies: Shortness of Breath Cardiovascular: Denies: Edema Gastrointestinal: Denies: Abdominal Pain, Nausea, Vomiting Genitourinary: Reports: Incontinence Neurological: Reports: Weakness - Patient Data Vitals - Most Recent: Last Vital Signs Temp 98.4 F 03/14/20 15:49 Pulse 92 03/14/20 15:49 Resp 20 03/14/20 15:49 BP 151/61 H 03/14/20 15:49 Pulse Ox 95 03/14/20 15:49 Weight - Most Recent: 206 lb 3.2 oz I&O - Last 24 Hours: Intake & Output 03/14/20 03/14/20 03/14/20 06:59 14:59 22:59 Intake Total 1567 Balance 1567 Lab Results Last 24 Hours: Laboratory Results - last 24 hr 03/14/20 03/14/20 03/14/20 Range/Units 05:11 07:10 07:15 WBC 12.3 H (5.0-10.0) 10^3/uL RBC 4.15 (4.00-5.50) 10^6/uL Hgb 13.6 (12.0-16.0) g/dL Hct 42.1 (37.0-47.0) % MCV 101.4 H (82.0-94.0) fL MCH 32.8 H (27.0-32.0) pg MCHC 32.3 L (33.0-38.0) g/dL RDW Coeff of Norma 13.4 (11.0-15.0) % Plt Count 184 (150-400) 10^3/uL Neut % (Auto) 75.5 (35-85) % Lymph % (Auto) 12.1 (10-55) % [place] % (Auto) 7.7 (0-16) % Eos % (Auto) 4.5 (0-5) % Baso % (Auto) 0.2 (0-3) % Neut # (Auto) 9.31 H (1.80-7.00) 10^3/uL Lymph # (Auto) 1.49 (1.00-4.80) 10^3/uL [place] # (Auto) 0.95 H (0.00-0.80) 10^3/uL Eos # (Auto) 0.56 H (0.00-0.45) 10^3/uL Baso # (Auto) 0.02 10^3/uL Sodium 141 (136-145) mEq/L Potassium 3.7 (3.5-5.0) mEq/L Chloride 105 (98-106) mEq/L Carbon Dioxide 32 (21-32) mmol/L BUN 7 (7-18) mg/dL Creatinine 0.6 (0.6-1.0) mg/dL Est Cr Clr Drug Dosing 61.86 mL/min Estimated GFR (MDRD) > 60 (>=60) mL/min Glucose 98 (75-99) mg/dL Calcium 8.2 L (8.4-10.1) mg/dL C-Reactive Protein 3.1 H (0.2-0.8) mg/dL NT-Pro-B Natriuret Pep 1168 H (0-1000) pg/mL Med Orders - Current: Current Medications Acetaminophen (Tylenol) 650 mg PO Q4H PRN PRN Reason: Pain/Fever Aspirin (Halfprin) 81 mg PO DAILY [facility] Last Admin: 03/14/20 09:11 Dose: 81 mg Documented by: Bisacodyl (Dulcolax) 5 - 10 mg PO DAILY PRN PRN Reason: Constipation Carvedilol (Coreg) 3.125 mg PO BIDMEALS [facility] Last Admin: 03/14/20 09:10 Dose: 3.125 mg Documented by: Duloxetine HCl (Cymbalta) 60 mg PO DAILY [facility] Last Admin: 03/14/20 09:10 Dose: 60 mg Documented by: Enoxaparin Sodium (Lovenox) 40 mg SUBCUT Q24H [facility] Last Admin: 03/14/20 09:20 Dose: Not Given Documented by: Famotidine (Pepcid) 20 mg PO Q48H [facility] Last Admin: 03/13/20 17:28 Dose: 20 mg Documented by: Fentanyl (Duragesic) 100 mcg TRDERM Q72H [facility] Last Admin: 03/14/20 09:16 Dose: 100 mcg Documented by: Gabapentin (Neurontin) 300 mg PO TID [facility] Last Admin: 03/14/20 13:00 Dose: 300 mg Documented by: Levofloxacin/Dextrose 500 mg/ (Premix) 100 mls @ 100 mls/hr IV Q24H [facility] Last Admin: 03/14/20 12:50 Dose: 100 mls/hr Documented by: Lorazepam (Ativan) 0.25 mg PO BEDTIME [facility] Last Admin: 03/13/20 19:31 Dose: 0.25 mg Documented by: Melatonin (Melatonin) 6 mg PO BEDTIME [facility] Last Admin: 03/13/20 19:31 Dose: 6 mg Documented by: Multivitamins/Minerals/Vitamin C (Tab-A-Jayden) 1 tab PO DAILY [facility] Last Admin: 03/14/20 09:11 Dose: 1 tab Documented by: Oxycodone HCl (Oxycodone) 5 mg PO DAILY [facility] Last Admin: 03/14/20 09:11 Dose: 5 mg Documented by: Quetiapine Fumarate (Seroquel) 12.5 mg PO BEDTIME [facility] Last Admin: 03/13/20 19:33 Dose: 12.5 mg Documented by: Senna/Docusate Sodium (Senna Plus) 1 tab PO DAILY [facility] Last Admin: 03/14/20 09:11 Dose: 1 tab Documented by: Discontinued Medications Carvedilol (Coreg) 3.125 mg PO BID [facility] Last Admin: 03/13/20 08:26 Dose: 3.125 mg Documented by: Ceftriaxone Sodium (Rocephin) 2 gm IVPUSH ONETIME ONE Stop: 03/11/20 04:31 Last Admin: 03/11/20 04:50 Dose: 2 gm Documented by: Ceftriaxone Sodium (Rocephin) 1 gm IVPUSH Q24H [facility] Last Admin: 03/14/20 03:46 Dose: 1 gm Documented by: Diphenhydramine HCl (Benadryl) 25 mg PO ONETIME ONE Stop: 03/12/20 20:46 Last Admin: 03/12/20 21:12 Dose: 25 mg Documented by: Duloxetine HCl (Cymbalta) 30 mg PO DAILY [facility] Famotidine (Pepcid) 20 mg PO Q48H [facility] Last Admin: 03/11/20 17:16 Dose: Not Given Documented by: Fentanyl (Duragesic) 25 mcg TRDERM Q72H [facility] Last Admin: 03/11/20 04:17 Dose: Not Given Documented by: Sodium Chloride (Normal Saline) 1,000 mls @ 100 mls/hr IV ASDIRECTED [facility] Last Admin: 03/11/20 03:07 Dose: 100 mls/hr Documented by: Sodium Chloride (Normal Saline) 1,000 mls @ 30 mls/hr IV ASDIRECTED [facility] Last Admin: 03/14/20 04:00 Dose: 80 mls/hr Documented by: Magnesium Sulfate/Dextrose 2 (gm/ Premix) 200 mls @ 100 mls/hr IV ONETIME ONE Stop: 03/11/20 05:48 Last Admin: 03/11/20 04:56 Dose: 100 mls/hr Documented by: Melatonin (Melatonin) 5 mg PO BEDTIME [facility] Non-Formulary Medication (Ranitidine [Zantac]) 150 mg PO DAILY [facility] Nystatin (Nystatin Crm) 30 gm TOP BID [facility] Oxycodone HCl (Oxycodone) 5 mg PO Q4H [facility] Last Admin: 03/11/20 04:17 Dose: Not Given Documented by: Potassium Chloride (Klor-Con 10) 20 meq PO TIDMEALS [facility] Quetiapine Fumarate (Seroquel) 25 mg PO BEDTIME [facility] Quetiapine Fumarate (Seroquel) 25 mg PO BEDTIME [facility] Last Admin: 03/12/20 20:09 Dose: 25 mg Documented by: - Exam General: Alert, Oriented, Cooperative HEENT: Other (mucous membranes dry) Neck: Supple Lungs: Decreased Breath Sounds Cardiovascular: Regular Rate, Regular Rhythm GI/Abdominal Exam: Normal Bowel Sounds, Soft, Non-Tender Extremities: Normal Inspection, No Pedal Edema Skin: Warm, Dry Neurological: No New Focal Deficit Sepsis Event Note - Evaluation Sepsis Screening Result: Sepsis Risk - Focused Exam Vital Signs: Vital Signs Temp Pulse Pulse Resp BP BP BP 03/14/20 15:49 98.4 F 92 20 151/61 H 03/14/20 11:27 98.3 F 92 20 133/39 L 03/14/20 09:10 111 H 158/66 H 03/14/20 08:55 100.9 F H 03/14/20 08:00 99.8 F 111 H 20 158/66 H Pulse Ox 03/14/20 15:49 95 03/14/20 11:27 95 03/14/20 09:10 03/14/20 08:55 90 L 03/14/20 08:00 88 L - Problem List & Annotations (1) Altered mental status SNOMED Code(s): 246131738 Code(s): R41.82 - ALTERED MENTAL STATUS, UNSPECIFIED Status: Acute Priority: High Current Visit: Yes Qualifiers: Altered mental status type: unspecified Qualified Code(s): R41.82 - Altered mental status, unspecified (2) Urinary tract infection SNOMED Code(s): 12641521 Code(s): N39.0 - URINARY TRACT INFECTION, SITE NOT SPECIFIED Status: Acute Priority: High Current Visit: Yes Qualifiers: Encounter type: initial encounter (3) Hypomagnesemia SNOMED Code(s): 954168734 Code(s): E83.42 - HYPOMAGNESEMIA Status: Chronic Priority: High Current Visit: Yes Onset Date: 05/07/15 - Problem List Review Problem List Initiated/Reviewed/Updated: Yes - My Orders Last 24 Hours: My Active Orders 03/13/20 20:00 QUEtiapine [SEROqueL] 12.5 mg PO BEDTIME 03/14/20 08:17 Chest 1V Frontal [CR] Routine 03/14/20 12:00 Levofloxacin/Dextrose 5%-Water [Levaquin in D5W 500 MG/100 ML] 500 mg Premix Bag 1 bag IV Q24H 03/15/20 05:11 BASIC METABOLIC PANEL,BMP [CHEM] AM C-REACTIVE PROTEIN [CHEM] AM CBC WITH AUTO DIFF [HEME] AM - Assessment Assessment:: Altered Mental Status UTI Hypomagnesemia no change in pt at this point, will continue current t x plan and make changes as needed - Plan Plan:: Patient is alert, oriented today. Feeding self. Answers questions appropriately. Denies any pain. Lung sounds are clear, abdomen is soft and nontender. WBC is normal this am at 8.8. BMP stable. Electrolytes are normal. Magnesium improved to 1.7. Will continue with IV antibiotics. Possible discharge back to [email or web address] tomorrow. 03-13-2020 Patient sedated this am. Was started on Seroquel last evening as [email or web address] had contacted us and was worried about her intermittent hallucinations and behaviors as well as anxiety. Jennifer was also contacted last night as patient was complaining of persistent itching so a dose of Benadryl was given. This am, patient arouses to stimulation. Moans but doesn't awaken. Lung sounds are clear. Abdomen appears soft, does not grimace to palpation. As we continue to make med changes, inappropriate for patient to return back to [facility]. Will reduce her Seroquel dose today for evening. Reevaluate with possible discharge back to [facility] in am. Continue IV Rocephin as urine culture shows e coli sensitive to it. 03-14-2020 Patient more alert today. Cooperative. Nurse notes hypoxia this am, oxygen sat low in the 80s with lying flat and sleeping. Does improve when arouse. Oxygen was increased to 3 liters, oxygen sat improved. Lung sounds diminished but does no inspire deeply to command. Temp low grade this am. WBC is increased to 12.3, CRP 3. Chest xray 1 view obtained, difficult to determine if underlying infiltrate as patient does not take a deep breath to command. ProBNP 1100. Will switch patient to IV Levaquin, will adequately cover if developing a secondary pneumonia. Stop IV fluids. Keep head of bed elevated. Reevaluate labs in am.
[2020-03-14] MEDS: Melatonin 3 MG Tab PO SCH (19:19)
[2020-03-14] MEDS: QUEtiapine 25 MG Tab PO SCH (19:19)
[2020-03-14] MEDS: LORazepam 0.5 MG Tab PO SCH (19:21)
[2020-03-15 07:32] LABS: CHLORIDE,CL 104 mEq/L (98-106); SODIUM,NA 143 mEq/L (136-145)
[2020-03-15] MEDS ORDERED: cefTRIAXone 1 GM Vial IVPUSH SCH (08:00)
[2020-03-15] MEDS: oxyCODONE 5 MG Tab PO SCH (08:10)
[2020-03-15] MEDS: DULoxetine 30 MG Cap PO SCH (08:11)
[2020-03-15] MEDS: Multivitamin Tab PO SCH (08:11)
[2020-03-15] MEDS: Aspirin 81 MG Tab.EC PO SCH (08:11)
[2020-03-15] MEDS: Gabapentin 300 MG Cap PO SCH (08:11)
[2020-03-15] MEDS: Carvedilol 3.125 MG Tab PO SCH (08:12)
[2020-03-15 08:13] VITALS: BP 155/64; PULSE 63
[2020-03-15] MEDS: Enoxaparin 40 MG/0.4 ML Syringe SUBCUT SCH (08:13)
--- NOTE | 2020-03-15 09:10 | PCM.DCSUM1 ---
Discharge Summary - Hospital Course Free Text/Narrative:: Sariah is an 79 year old female who presented to ER from [facility] with increased confusion and hallucinations. Staff had reported that she was not taking her meds or eating or drinking well through the day. Was seeing people that are not present. Patient had denied any complaints. WBC is mildly elevated at 10.4. Magnesium low at 1.6. UA positive. Admitted and started on IV normal saline. Rocephin for UTI. Magnesium replacement. Diagnosis: Stroke: No Modified [place] Scale: No Symptoms at All Modified [place] Scale Score: 0 - Discharge Data Discharge Date: 03/15/20 Discharge Disposition: Home, Self-Care 01 Condition: Fair - Referral to Home Health Primary Care Physician: PCP None - Discharge Diagnosis/Problem(s) (1) Altered mental status SNOMED Code(s): 532855199 ICD Code: R41.82 - ALTERED MENTAL STATUS, UNSPECIFIED Status: Acute Priority: High Qualifiers: Altered mental status type: unspecified Qualified Code(s): R41.82 - Altered mental status, unspecified (2) Urinary tract infection SNOMED Code(s): 72301511 ICD Code: N39.0 - URINARY TRACT INFECTION, SITE NOT SPECIFIED Status: Acute Priority: High Qualifiers: Encounter type: initial encounter (3) Hypomagnesemia SNOMED Code(s): 798250650 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 Did have episodes of hallucinations while here, restless at times. Was started on Seroquel at bedtime. Had complained of pruritis the same night she was started on Seroquel so was given Benadryl. Between the new med and Benadryl, was quite sedated. Did have issues with arousing her the next day so dose of Seroquel was reduced. Patient has been treated with IV Rocephin for UTI. Culture positive for e coli. On day 3, patient did start running a fever. Additional labs were done. WBC elevated to 12.3. Chest xray was done, no obvious infiltrate. Oxygen sats were down in the 80s, worse with lying flat. Oxygen increased to 3 liters. Given dose of Levaquin. Today, labs have returned back to normal. residential concerned about cough with eating. Does not like to sit upright. Throat clear. Will need UGI or EGD, consult with ENT. Alert and feeding self today. Will discharge back to [facility] on Ceftin for UTI. Continue Seroquel for behaviors. - Patient Instructions Diet: Usual Diet as Tolerated Activity: As Tolerated Other/Special Instructions: Consider UGI or see Dr. Trinidad for swallow study/EGD - Discharge Plan *PRESCRIPTION DRUG MONITORING PROGRAM REVIEWED*: Not Applicable *COPY OF PRESCRIPTION DRUG MONITORING REPORT IN PATIENT FIDELINA: Not Applicable Prescriptions/Med Rec: Cefuroxime [Ceftin] 250 mg PO BID #14 tab QUEtiapine [SEROquel] 12.5 mg PO BEDTIME #30 tablet Home Medications: Home Meds Aspirin [Aspirin EC] 81 mg PO DAILY 03/11/20 [History] DULoxetine [Cymbalta] 60 mg PO DAILY 03/11/20 [History] Famotidine 20 mg PO ASDIRECTED 03/11/20 [History] Fluticasone Propionate [Flonase Allergy Relief] 1 spray NASBOTH DAILY PRN 03/11/20 [History] Gabapentin [Neurontin] 300 mg PO TID 03/11/20 [History] LORazepam [Ativan] 0.25 mg PO DAILY 03/11/20 [History] LORazepam [Ativan] 0.5 mg PO ASDIRECTED PRN 03/11/20 [History] Melatonin 5 mg PO BEDTIME 03/11/20 [History] Multivitamin with Iron [Multivitamins with Iron] 1 tab PO DAILY 03/11/20 [History] Naproxen Sodium [Aleve] 220 mg PO Q12HR PRN 03/11/20 [History] Sennosides/Docusate Sodium [Docusate Sodium-Sennosides Tab] 1 tab PO DAILY 03/11/20 [History] bisacodyL [Dulcolax] 5 - 10 mg PO DAILY PRN 03/11/20 [History] carvediloL [Carvedilol] 3.125 mg PO BID 03/11/20 [History] fentaNYL [Duragesic] 100 mcg TRDERM ASDIRECTED 03/11/20 [History] oxyCODONE 5 mg PO DAILY 03/11/20 [History] Cefuroxime [Ceftin] 250 mg PO BID #14 tab 03/15/20 [Rx] QUEtiapine [SEROquel] 12.5 mg PO BEDTIME #30 tablet 03/15/20 [Rx] Forms: ED Department Discharge Referrals: PCP,None [Primary Care Provider] - - Discharge Summary/Plan Comment DC Time >30 min.: No - General Info Date of Service: 03/15/20 Admission Dx/Problem (Free Text: AMS, confusion Functional Status: Reports: Pain Controlled, Tolerating Diet. Denies: Ambulating - Review of Systems General: Reports: Weakness. Denies: Fever, Fatigue, Malaise HEENT: Denies: Ear Pain, Sinus Congestion, Sore Throat Pulmonary: Denies: Shortness of Breath, Cough Cardiovascular: Denies: Chest Pain, Edema, Lightheadedness Gastrointestinal: Denies: Abdominal Pain, Nausea, Vomiting Genitourinary: Reports: Incontinence Musculoskeletal: Reports: No Symptoms Skin: Reports: No Symptoms Neurological: Reports: Weakness - Patient Data Vitals - Most Recent: Last Vital Signs Temp 97.3 F 03/15/20 03:36 Pulse 63 03/15/20 08:12 Resp 16 03/15/20 03:36 BP 155/64 H 03/15/20 08:12 Pulse Ox 94 L 03/15/20 03:36 Weight - Most Recent: 206 lb 3.2 oz I&O - Last 24 hours: Intake & Output 03/14/20 03/15/20 03/15/20 22:59 06:59 14:59 Intake Total 600 600 Balance 600 600 Lab Results - Last 24 hrs: Laboratory Results - last 24 hr 03/14/20 03/15/20 03/15/20 Range/Units 07:15 06:50 06:50 WBC 8.9 (5.0-10.0) 10^3/uL RBC 4.00 (4.00-5.50) 10^6/uL Hgb 12.6 (12.0-16.0) g/dL Hct 41.3 (37.0-47.0) % MCV 103.3 H (82.0-94.0) fL MCH 31.5 (27.0-32.0) pg MCHC 30.5 L (33.0-38.0) g/dL RDW Coeff of Norma 13.1 (11.0-15.0) % Plt Count 196 (150-400) 10^3/uL Neut % (Auto) 55.1 (35-85) % Lymph % (Auto) 25.2 (10-55) % [place] % (Auto) 11.3 (0-16) % Eos % (Auto) 8.2 H (0-5) % Baso % (Auto) 0.2 (0-3) % Neut # (Auto) 4.89 (1.80-7.00) 10^3/uL Lymph # (Auto) 2.24 (1.00-4.80) 10^3/uL [place] # (Auto) 1.00 H (0.00-0.80) 10^3/uL Eos # (Auto) 0.73 H (0.00-0.45) 10^3/uL Baso # (Auto) 0.02 10^3/uL Sodium 141 143 (136-145) mEq/L Potassium 3.7 3.6 (3.5-5.0) mEq/L Chloride 105 104 (98-106) mEq/L Carbon Dioxide 32 36 H (21-32) mmol/L BUN 7 7 (7-18) mg/dL Creatinine 0.6 0.6 (0.6-1.0) mg/dL Est Cr Clr Drug Dosing 61.86 61.86 mL/min Estimated GFR (MDRD) > 60 > 60 (>=60) mL/min Glucose 98 83 (75-99) mg/dL Calcium 8.2 L 8.4 (8.4-10.1) mg/dL C-Reactive Protein 7.0 H (0.2-0.8) mg/dL NT-Pro-B Natriuret Pep 1168 H (0-1000) pg/mL Med Orders - Current: Current Medications Acetaminophen (Tylenol) 650 mg PO Q4H PRN PRN Reason: Pain/Fever Last Admin: 03/14/20 17:30 Dose: 650 mg Documented by: Aspirin (Halfprin) 81 mg PO DAILY [facility] Last Admin: 03/15/20 08:11 Dose: 81 mg Documented by: Bisacodyl (Dulcolax) 5 - 10 mg PO DAILY PRN PRN Reason: Constipation Carvedilol (Coreg) 3.125 mg PO BIDMEALS [facility] Last Admin: 09/03/20 08:12 Dose: 3.125 mg Documented by: Ceftriaxone Sodium (Rocephin) 1 gm IVPUSH Q24H [facility] Last Admin: 03/15/20 08:10 Dose: 1 gm Documented by: Duloxetine HCl (Cymbalta) 60 mg PO DAILY [facility] Last Admin: 03/15/20 08:11 Dose: 60 mg Documented by: Enoxaparin Sodium (Lovenox) 40 mg SUBCUT Q24H [facility] Last Admin: 03/15/20 08:13 Dose: Not Given Documented by: Famotidine (Pepcid) 20 mg PO Q48H [facility] Last Admin: 03/13/20 17:28 Dose: 20 mg Documented by: Fentanyl (Duragesic) 100 mcg TRDERM Q72H [facility] Last Admin: 03/14/20 09:16 Dose: 100 mcg Documented by: Gabapentin (Neurontin) 300 mg PO TID [facility] Last Admin: 03/15/20 08:11 Dose: 300 mg Documented by: Lorazepam (Ativan) 0.25 mg PO BEDTIME [facility] Last Admin: 03/14/20 19:21 Dose: 0.25 mg Documented by: Melatonin (Melatonin) 6 mg PO BEDTIME [facility] Last Admin: 03/14/20 19:19 Dose: 6 mg Documented by: Multivitamins/Minerals/Vitamin C (Tab-A-Jayden) 1 tab PO DAILY [facility] Last Admin: 03/15/20 08:11 Dose: 1 tab Documented by: Oxycodone HCl (Oxycodone) 5 mg PO DAILY [facility] Last Admin: 03/15/20 08:10 Dose: 5 mg Documented by: Quetiapine Fumarate (Seroquel) 12.5 mg PO BEDTIME [facility] Last Admin: 03/14/20 19:19 Dose: 12.5 mg Documented by: Senna/Docusate Sodium (Senna Plus) 1 tab PO DAILY [facility] Last Admin: 03/15/20 08:12 Dose: 1 tab Documented by: Discontinued Medications Carvedilol (Coreg) 3.125 mg PO BID [facility] Last Admin: 03/13/20 08:26 Dose: 3.125 mg Documented by: Ceftriaxone Sodium (Rocephin) 2 gm IVPUSH ONETIME ONE Stop: 03/11/20 04:31 Last Admin: 03/11/20 04:50 Dose: 2 gm Documented by: Ceftriaxone Sodium (Rocephin) 1 gm IVPUSH Q24H [facility] Last Admin: 03/14/20 03:46 Dose: 1 gm Documented by: Diphenhydramine HCl (Benadryl) 25 mg PO ONETIME ONE Stop: 03/12/20 20:46 Last Admin: 03/12/20 21:12 Dose: 25 mg Documented by: Duloxetine HCl (Cymbalta) 30 mg PO DAILY [facility] Famotidine (Pepcid) 20 mg PO Q48H [facility] Last Admin: 03/11/20 17:16 Dose: Not Given Documented by: Fentanyl (Duragesic) 25 mcg TRDERM Q72H [facility] Last Admin: 03/11/20 04:17 Dose: Not Given Documented by: Sodium Chloride (Normal Saline) 1,000 mls @ 100 mls/hr IV ASDIRECTED [facility] Last Admin: 03/11/20 03:07 Dose: 100 mls/hr Documented by: Sodium Chloride (Normal Saline) 1,000 mls @ 30 mls/hr IV ASDIRECTED [facility] Last Admin: 03/14/20 04:00 Dose: 80 mls/hr Documented by: Magnesium Sulfate/Dextrose 2 (gm/ Premix) 200 mls @ 100 mls/hr IV ONETIME ONE Stop: 03/11/20 05:48 Last Admin: 03/11/20 04:56 Dose: 100 mls/hr Documented by: Levofloxacin/Dextrose 500 mg/ (Premix) 100 mls @ 100 mls/hr IV Q24H [facility] Last Admin: 03/14/20 12:50 Dose: 100 mls/hr Documented by: Melatonin (Melatonin) 5 mg PO BEDTIME [facility] Non-Formulary Medication (Ranitidine [Zantac]) 150 mg PO DAILY [facility] Nystatin (Nystatin Crm) 30 gm TOP BID COUNT [facility]CLUD[facility] Oxycodone HCl (Oxycodone) 5 mg PO Q4H [facility] Last Admin: 03/11/20 04:17 Dose: Not Given Documented by: Potassium Chloride (Klor-Con 10) 20 meq PO TIDMEALS COUNT [facility]CLUD[facility] Quetiapine Fumarate (Seroquel) 25 mg PO BEDTIME COUNT [facility] Quetiapine Fumarate (Seroquel) 25 mg PO BEDTIME [facility] Last Admin: 03/12/20 20:09 Dose: 25 mg Documented by: - Exam Quality Assessment: Reports: Supplemental Oxygen General: Reports: Alert, Oriented HEENT: Reports: Mucous Membr. Moist/[place] Neck: Reports: Supple Lungs: Reports: Clear to Auscultation, Normal Respiratory Effort Cardiovascular: Reports: Regular Rate, Regular Rhythm GI/Abdominal Exam: Normal Bowel Sounds, Soft, Non-Tender Extremities: Normal Inspection, Pedal Edema (1+) Skin: Reports: Warm, Dry Neurological: Reports: No New Focal Deficit
== END 2020-03-15 10:12 | disposition home or self-care (01) | DRG 880 ==
LOC: CC.ED 02:19 → CC.MS 03:06 → UNDOADMIN 03:36 → CC.MS 03:36
PROVIDERS: ADMIT Nurse Practitioner; ATTEND Family Medicine
DX: R44.3 Hallucinations, unspecified (principal); N39.0 Urinary tract infection, site not specified; G81.94 Hemiplegia, unspecified affecting left nondominant side; E83.42 Hypomagnesemia; R41.82 Altered mental status, unspecified; B91 Sequelae of poliomyelitis; Z86.14 Personal history of Methicillin resistant Staphylococcus aureus infection; B96.20 Unspecified Escherichia coli [E. coli] as the cause of diseases classified elsewhere; L29.9 Pruritus, unspecified; F31.9 Bipolar disorder, unspecified; Z88.7 Allergy status to serum and vaccine; Z88.8 Allergy status to other drugs, medicaments and biological substances; Z79.82 Long term (current) use of aspirin; Z79.899 Other long term (current) drug therapy
CPT/HCPCS: 36415; 71045; 80048; 80053; 81001; 83735; 83880; 85025; 86140; 87086; 87088; 87186; 99285-25; A9270-GY; J0696; J1650; J1956; J3475; J7030

== ENCOUNTER 2022-02-05 10:38 | Observation (INO) | payer MEDICARE, OTHER, MEDICAID ==
[2022-02-05] MEDS ORDERED: Furosemide 40 MG/4 ML VIAL IVPUSH ONE (11:32)
[2022-02-05] MEDS ORDERED: Albuterol/Ipratropium 3.0-0.5 MG/3 ML Neb Soln NEB ONE (11:53)
[2022-02-05] MEDS ORDERED: Albuterol/Ipratropium 3.0-0.5 MG/3 ML Neb Soln NEB PRN (12:52)
[2022-02-05] MEDS ORDERED: Bisacodyl 5 MG Tab PO PRN (12:52)
[2022-02-05] MEDS ORDERED: Acetaminophen 325 MG Tab PO PRN (12:52)
[2022-02-05] MEDS ORDERED: Famotidine 20 MG Tab PO SCH (13:00)
[2022-02-05] MEDS: Enoxaparin 30 MG/0.3 ML Syringe SUBCUT SCH (15:11)
[2022-02-05] MEDS: Gabapentin 300 MG Cap *PT OWN MED PO SCH ×2 (15:12→19:47)
[2022-02-05] MEDS: CARVEDILOL 3.125 MG PO SCH (19:37)
[2022-02-05] MEDS: Melatonin 3 MG Tab PO SCH (19:40)
[2022-02-05] MEDS: QUETIAPINE 25 MG PO SCH (19:41)
[2022-02-05] MEDS: LORAZEPAM 0.5 MG PO SCH (19:46)
[2022-02-06] MEDS: CARVEDILOL 3.125 MG PO SCH ×2 (08:22→19:52)
[2022-02-06] MEDS: Gabapentin 300 MG Cap *PT OWN MED PO SCH ×3 (08:22→19:55)
[2022-02-06] MEDS: Furosemide 40 MG/4 ML VIAL IVPUSH SCH (08:23)
[2022-02-06] MEDS: Aspirin 81 MG Tab.EC PO SCH (08:25)
[2022-02-06] MEDS ORDERED: Levofloxacin/Dextrose 5%-Water 500 MG in Premix Bag 1 BAG IV ONE (09:16)
[2022-02-06] MEDS: OMEPRAZOLE 20 MG CAP *PT OWN MED PO SCH (10:46)
[2022-02-06] MEDS: Enoxaparin 30 MG/0.3 ML Syringe SUBCUT SCH (15:49)
[2022-02-06] MEDS: Melatonin 3 MG Tab PO SCH (19:51)
[2022-02-06] MEDS: QUETIAPINE 25 MG PO SCH (19:53)
[2022-02-06] MEDS: LORAZEPAM 0.5 MG PO SCH (19:56)
[2022-02-07] MEDS: Furosemide 40 MG/4 ML VIAL IVPUSH SCH (07:53)
[2022-02-07] MEDS: CARVEDILOL 3.125 MG PO SCH (08:10)
[2022-02-07] MEDS: Aspirin 81 MG Tab.EC PO SCH (08:11)
[2022-02-07] MEDS: Gabapentin 300 MG Cap *PT OWN MED PO SCH (08:12)
[2022-02-07 08:20] VITALS: BP 133/41; PULSE 91
[2022-02-07] MEDS ORDERED: Levofloxacin/Dextrose 5%-Water 250 MG in Premix Bag 1 BAG IV ONE (10:00)
[2022-02-07] MEDS: OMEPRAZOLE 20 MG CAP *PT OWN MED PO SCH (10:00)
== END 2022-02-07 12:10 | disposition home or self-care (01) ==
LOC: CC.ED 10:38 → CC.MS 11:55
PROVIDERS: ADMIT Nurse Practitioner Family; ATTEND Nurse Practitioner Family
DX: R41.0 Disorientation, unspecified (principal); E87.5 Hyperkalemia; N39.0 Urinary tract infection, site not specified; E66.9 Obesity, unspecified; E83.42 Hypomagnesemia; F41.9 Anxiety disorder, unspecified; F32.A Depression, unspecified; D72.829 Elevated white blood cell count, unspecified; I10 Essential (primary) hypertension; Z79.82 Long term (current) use of aspirin; Z88.8 Allergy status to other drugs, medicaments and biological substances; Z79.899 Other long term (current) drug therapy; Z79.2 Long term (current) use of antibiotics; Z98.890 Other specified postprocedural states; Z68.41 Body mass index [BMI] 40.0-44.9, adult
CPT/HCPCS: 36415; 71045; 80053; 81001; 83880; 85025; 87086; 87088; 87186; 96360; 96366; 96374; 96375; 96376; 99217; 99220; 99225; 99285-25; A9270-GY; G0378; J1650; J1940; J1956; J7620-GY

== ENCOUNTER → 2022-11-21 | Day surgery (SDC) | payer MEDICARE, OTHER, MEDICAID ==
[~2022-11-21] MED LIST: Lactated Ringers 1,000 ML IV SCH
[2022-11-21 12:15] VITALS: BP 178/48; PULSE 78
== END ==
LOC: CC.SDS 09:35
PROVIDERS: ATTEND Family Medicine
DX: K29.50 Unspecified chronic gastritis without bleeding (principal); K31.89 Other diseases of stomach and duodenum; D13.1 Benign neoplasm of stomach; D50.9 Iron deficiency anemia, unspecified; D64.9 Anemia, unspecified; E66.01 Morbid (severe) obesity due to excess calories; Z86.12 Personal history of poliomyelitis; Z88.8 Allergy status to other drugs, medicaments and biological substances
CPT/HCPCS: 00813; 43239; 87081; 88305; 88342; 99100; J7120

== ENCOUNTER 2022-12-13 13:01 | Emergency (ER) | payer MEDICARE, OTHER, MEDICAID ==
[2022-12-13 13:04] VITALS: BP 149/89; PULSE 68
[2022-12-13 13:30] LABS: BASOPHILS ABSOLUTE AUTO 0.03 10^3/uL (0.00-0.50); BASOPHILS PERCENT AUTO 0.3 % (0-1); EOSINOPHILS ABSOLUTE AUTO 0.21 10^3/uL (0.00-1.50); EOSINOPHILS PERCENT AUTO 1.9 % (0-6); HEMATOCRIT 27.3 % (37.0-47.0); HEMOGLOBIN 8.6 g/dL (12.0-16.0); IMMATURE GRAN ABSOLUTE AUTO 0.01 10^3/uL (0.00-0.49); IMMATURE GRAN PERCENT AUTO 0.1 % (0.0-4.9); LYMPHOCYTES ABSOLUTE AUTO 2.14 10^3/uL (0.60-5.00); LYMPHOCYTES PERCENT AUTO 19.6 % (24-44); MEAN CORPUSCULAR HEMOGLOBIN 30.6 pg (27.0-32.0); MEAN CORPUSCULAR HGB CONC 31.5 g/dL (32.0-36.0); MEAN CORPUSCULAR VOLUME 97.2 fL (83.0-97.0); MONOCYTES ABSOLUTE AUTO 1.07 10^3/uL (0.00-1.50); MONOCYTES PERCENT AUTO 9.8 % (0-10); NEUTROPHILS ABSOLUTE AUTO 7.44 x10^3/uL (1.80-8.00); NEUTROPHILS PERCENT AUTO 68.3 % (41-71); PLATELET COUNT,PLT 257 10^3/uL (150-400); RED BLOOD CELL COUNT 2.81 x10^6/uL (4.00-5.50); WHITE BLOOD CELL COUNT,WBC 10.9 10^3/uL (4.0-11.0)
[2022-12-13 13:44] LABS: ALBUMIN 1.2 g/dL (3.4-5.0); BILIRUBIN TOTAL 0.4 mg/dL (0.0-1.0); CALCIUM 7.9 mg/dL (8.4-10.1); CREATININE 1.5 mg/dL (0.6-1.0); EST CRCL DRUG DOSING (CG) 20.41 mL/min; POTASSIUM,K 3.6 mEq/L (3.5-5.0)
[2022-12-13 13:54] LABS: C-REACTIVE PROTEIN 16.9 mg/dL (0.2-0.8)
[2022-12-13] MEDS ORDERED: cefTRIAXone 1 GM Vial IM ONE (14:23)
[2022-12-13] MEDS ORDERED: methylPREDNISolone Sodium Succinate 40 MG/1 ML SDV IM ONE (14:24)
[2022-12-13] MEDS ORDERED: cefTRIAXone 1 GM Vial IVPUSH ONE (14:33)
[2022-12-13] MEDS ORDERED: methylPREDNISolone Sodium Succinate 40 MG/1 ML SDV IVPUSH ONE (14:33)
[2022-12-13] MEDS ORDERED: Take Home: Cephalexin 500 MG Cap, 6 Cap Pack PO ONE (15:29)
[2022-12-13] MEDS ORDERED: Take Home: predniSONE 20 MG, 2 Tab Pack PO ONE (15:35)
== END 2022-12-13 16:28 | disposition home or self-care (01) ==
LOC: CC.ED 13:01
DX: L03.114 Cellulitis of left upper limb (principal); K21.9 Gastro-esophageal reflux disease without esophagitis; E66.9 Obesity, unspecified; Z68.41 Body mass index [BMI] 40.0-44.9, adult; Z88.7 Allergy status to serum and vaccine; Z88.8 Allergy status to other drugs, medicaments and biological substances; Z79.899 Other long term (current) drug therapy
CPT/HCPCS: 36415; 73130-LT; 80053; 84550; 85025; 86140; 96374; 96375; 99283-25; 99284; A9270-GY; J0696; J2920; J7512

== ENCOUNTER 2022-12-26 13:59 | Inpatient (IN) | payer MEDICARE, OTHER, MEDICAID ==
[2022-12-26 15:00] LABS: BASOPHILS ABSOLUTE AUTO 0.05 10^3/uL (0.00-0.50); BASOPHILS PERCENT AUTO 0.5 % (0-1); EOSINOPHILS ABSOLUTE AUTO 0.79 10^3/uL (0.00-1.50); EOSINOPHILS PERCENT AUTO 8.6 % (0-6); HEMATOCRIT 27.3 % (37.0-47.0); HEMOGLOBIN 8.2 g/dL (12.0-16.0); IMMATURE GRAN ABSOLUTE AUTO 0.01 10^3/uL (0.00-0.49); IMMATURE GRAN PERCENT AUTO 0.1 % (0.0-4.9); LYMPHOCYTES ABSOLUTE AUTO 2.21 10^3/uL (0.60-5.00); LYMPHOCYTES PERCENT AUTO 24.1 % (24-44); MEAN CORPUSCULAR HEMOGLOBIN 30.1 pg (27.0-32.0); MEAN CORPUSCULAR VOLUME 100.4 fL (83.0-97.0); MONOCYTES ABSOLUTE AUTO 0.79 10^3/uL (0.00-1.50); MONOCYTES PERCENT AUTO 8.6 % (0-10); NEUTROPHILS ABSOLUTE AUTO 5.31 x10^3/uL (1.80-8.00); NEUTROPHILS PERCENT AUTO 58.1 % (41-71); PLATELET COUNT,PLT 293 10^3/uL (150-400); RED BLOOD CELL COUNT 2.72 x10^6/uL (4.00-5.50); WHITE BLOOD CELL COUNT,WBC 9.2 10^3/uL (4.0-11.0)
[2022-12-26 15:13] LABS: ALBUMIN 1.6 g/dL (3.4-5.0); BILIRUBIN TOTAL 0.4 mg/dL (0.0-1.0); C-REACTIVE PROTEIN 5.3 mg/dL (0.2-0.8); CALCIUM 8.2 mg/dL (8.4-10.1); CREATININE 1.9 mg/dL (0.6-1.0); EST CRCL DRUG DOSING (CG) 16.11 mL/min; MAGNESIUM 2.4 mg/dL (1.8-2.4); POTASSIUM,K 5.6 mEq/L (3.5-5.0); PROTEIN TOTAL,TP 7.3 g/dL (6.4-8.2)
[2022-12-26 15:39] LABS: APPEARANCE,URINE CLEAR (CLEAR); BILIRUBIN,URINE NEGATIVE (NEGATIVE); COLOR,URINE YELLOW (YELLOW); GLUCOSE,URINE NEGATIVE (NEGATIVE); KETONES,URINE NEGATIVE (NEGATIVE); LEUKOCYTE ESTERASE,URINE SMALL (NEGATIVE); NITRITE,URINE NEGATIVE (NEGATIVE); OCCULT BLOOD,URINE LARGE (NEGATIVE); PH,URINE 5.5 (4.5-8.0); PROTEIN,URINE 30 mg/dL (NEGATIVE); UROBILINOGEN,URINE 0.2 EU/dL (0.2-1.0)
[2022-12-26 15:44] LABS: BACTERIA,URINE OCCASIONAL /HPF (NOT SEEN); EPITHELIAL CELLS,URINE FEW /HPF (NOT SEEN); MUCUS,URINE FEW /HPF (NOT SEEN)
[2022-12-26] MEDS ORDERED: Docusate Sodium 100 MG Cap PO PRN (16:10)
[2022-12-26] MEDS ORDERED: Albuterol/Ipratropium 3.0-0.5 MG/3 ML Neb Soln NEB PRN (16:10)
[2022-12-26] MEDS ORDERED: Sodium Chloride 0.9% 500 ML IV STA (16:10)
[2022-12-26] MEDS ORDERED: Polyethylene Glycol 3350 Powder 17 GM Packet PO PRN (16:10)
[2022-12-26] MEDS ORDERED: Acetaminophen 325 MG Tab PO PRN (16:18)
[2022-12-26] MEDS ORDERED: oxyCODONE 5 MG Tab PO PRN (16:18)
[2022-12-26] MEDS ORDERED: Fluticasone NASAL Spray 16 GM Bottle NASBOTH PRN (16:18)
[2022-12-26] MEDS ORDERED: Naproxen 500 MG Tab PO PRN (16:18)
[2022-12-26] MEDS ORDERED: Calcium Carbonate 500 MG Tab.Chew PO PRN (16:18)
[2022-12-26] MEDS: cefTRIAXone 1 GM Vial IVPUSH SCH (16:45)
[2022-12-26] MEDS: Azithromycin 500 MG in Sodium Chloride 0.9% 250 ML IV SCH (16:45)
[2022-12-26] MEDS: methylPREDNISolone Sodium Succinate 40 MG/1 ML SDV IVPUSH SCH (17:06)
[2022-12-26] MEDS: LORazepam 0.5 MG Tab PO SCH (21:48)
[2022-12-26] MEDS: Gabapentin 300 MG Cap PO SCH (21:49)
[2022-12-26] MEDS: QUEtiapine 25 MG Tab PO SCH (21:50)
[2022-12-26] MEDS: Ferrous Sulfate 324 MG Tab.EC PO SCH (21:50)
[2022-12-26] MEDS: Carvedilol 3.125 MG Tab PO SCH (22:35)
[2022-12-27] MEDS: Carvedilol 3.125 MG Tab PO SCH ×2 (08:10→20:42)
[2022-12-27] MEDS: Ferrous Sulfate 324 MG Tab.EC PO SCH ×2 (08:10→20:41)
[2022-12-27] MEDS: DULoxetine 30 MG Cap PO SCH (08:10)
[2022-12-27] MEDS: oxyCODONE 5 MG Tab PO SCH (08:21)
[2022-12-27] MEDS: Multivitamins with Iron/Calcium/Folic Acid/Minerals Tab PO SCH (08:21)
[2022-12-27] MEDS: Pantoprazole 40 MG Tab.CR PO SCH (08:22)
[2022-12-27] MEDS: Sennosides/Docusate Sodium 50-8.6 MG Tab PO SCH (08:22)
[2022-12-27] MEDS: Gabapentin 300 MG Cap PO SCH ×3 (08:22→20:41)
[2022-12-27] MEDS: methylPREDNISolone Sodium Succinate 40 MG/1 ML SDV IVPUSH SCH (08:23)
[2022-12-27] MEDS: fentaNYL 100 MCG/HR Transdermal Patch TRDERM SCH (08:28)
[2022-12-27 08:32] LABS: BASOPHILS ABSOLUTE AUTO 0.03 10^3/uL (0.00-0.50); BASOPHILS PERCENT AUTO 0.3 % (0-1); HEMATOCRIT 28.6 % (37.0-47.0); HEMOGLOBIN 9.2 g/dL (12.0-16.0); IMMATURE GRAN ABSOLUTE AUTO 0.03 10^3/uL (0.00-0.49); IMMATURE GRAN PERCENT AUTO 0.3 % (0.0-4.9); LYMPHOCYTES ABSOLUTE AUTO 1.75 10^3/uL (0.60-5.00); LYMPHOCYTES PERCENT AUTO 18.5 % (24-44); MEAN CORPUSCULAR HEMOGLOBIN 30.7 pg (27.0-32.0); MEAN CORPUSCULAR HGB CONC 32.2 g/dL (32.0-36.0); MEAN CORPUSCULAR VOLUME 95.3 fL (83.0-97.0); MONOCYTES ABSOLUTE AUTO 0.15 10^3/uL (0.00-1.50); MONOCYTES PERCENT AUTO 1.6 % (0-10); NEUTROPHILS ABSOLUTE AUTO 7.52 x10^3/uL (1.80-8.00); NEUTROPHILS PERCENT AUTO 79.3 % (41-71); PLATELET COUNT,PLT 308 10^3/uL (150-400); WHITE BLOOD CELL COUNT,WBC 9.5 10^3/uL (4.0-11.0)
[2022-12-27] MEDS: Heparin Sodium 5,000 Units/ML Vial SUBCUT SCH ×2 (14:46→20:46)
[2022-12-27] MEDS: cefTRIAXone 1 GM Vial IVPUSH SCH (15:12)
[2022-12-27] MEDS: Azithromycin 500 MG in Sodium Chloride 0.9% 250 ML IV SCH (15:13)
[2022-12-27] MEDS: LORazepam 0.5 MG Tab PO SCH (20:43)
[2022-12-27] MEDS: QUEtiapine 25 MG Tab PO SCH (20:45)
[2022-12-28 07:38] LABS: BASOPHILS ABSOLUTE AUTO 0.04 10^3/uL (0.00-0.50); BASOPHILS PERCENT AUTO 0.3 % (0-1); EOSINOPHILS ABSOLUTE AUTO 0.01 10^3/uL (0.00-1.50); EOSINOPHILS PERCENT AUTO 0.1 % (0-6); HEMATOCRIT 26.4 % (37.0-47.0); HEMOGLOBIN 8.1 g/dL (12.0-16.0); IMMATURE GRAN ABSOLUTE AUTO 0.02 10^3/uL (0.00-0.49); IMMATURE GRAN PERCENT AUTO 0.2 % (0.0-4.9); LYMPHOCYTES ABSOLUTE AUTO 3.06 10^3/uL (0.60-5.00); LYMPHOCYTES PERCENT AUTO 26.2 % (24-44); MEAN CORPUSCULAR HEMOGLOBIN 30.1 pg (27.0-32.0); MEAN CORPUSCULAR HGB CONC 30.7 g/dL (32.0-36.0); MEAN CORPUSCULAR VOLUME 98.1 fL (83.0-97.0); MONOCYTES ABSOLUTE AUTO 0.65 10^3/uL (0.00-1.50); MONOCYTES PERCENT AUTO 5.6 % (0-10); NEUTROPHILS PERCENT AUTO 67.6 % (41-71); PLATELET COUNT,PLT 318 10^3/uL (150-400); RED BLOOD CELL COUNT 2.69 x10^6/uL (4.00-5.50); WHITE BLOOD CELL COUNT,WBC 11.7 10^3/uL (4.0-11.0)
[2022-12-28 08:06] LABS: CALCIUM 8.2 mg/dL (8.4-10.1); CREATININE 1.9 mg/dL (0.6-1.0); EST CRCL DRUG DOSING (CG) 16.11 mL/min; MAGNESIUM 2.5 mg/dL (1.8-2.4); POTASSIUM,K 5.3 mEq/L (3.5-5.0)
[2022-12-28] MEDS: Sennosides/Docusate Sodium 50-8.6 MG Tab PO SCH (08:07)
[2022-12-28] MEDS: Gabapentin 300 MG Cap PO SCH ×3 (08:07→19:49)
[2022-12-28] MEDS: Carvedilol 3.125 MG Tab PO SCH ×2 (08:07→19:50)
[2022-12-28] MEDS: Multivitamins with Iron/Calcium/Folic Acid/Minerals Tab PO SCH (08:08)
[2022-12-28] MEDS: oxyCODONE 5 MG Tab PO SCH (08:08)
[2022-12-28] MEDS: Pantoprazole 40 MG Tab.CR PO SCH (08:08)
[2022-12-28] MEDS: Ferrous Sulfate 324 MG Tab.EC PO SCH ×2 (08:09→19:49)
[2022-12-28] MEDS: DULoxetine 30 MG Cap PO SCH (08:09)
[2022-12-28] MEDS: Heparin Sodium 5,000 Units/ML Vial SUBCUT SCH ×2 (08:10→19:46)
[2022-12-28] MEDS: methylPREDNISolone Sodium Succinate 40 MG/1 ML SDV IVPUSH SCH (08:10)
[2022-12-28] MEDS ORDERED: methylPREDNISolone Sodium Succinate 40 MG/1 ML SDV IVPUSH SCH (11:45)
[2022-12-28] MEDS: Piperacillin/Tazobactam 3.375 GM in Sodium Chloride 0.9% 100 ML IV SCH ×2 (13:00→17:45)
[2022-12-28] MEDS: Albuterol/Ipratropium 3.0-0.5 MG/3 ML Neb Soln NEB SCH ×2 (13:01→19:47)
[2022-12-28] MEDS: LORazepam 0.5 MG Tab PO SCH (19:47)
[2022-12-29 07:23] LABS: BASOPHILS ABSOLUTE AUTO 0.03 10^3/uL (0.00-0.50); BASOPHILS PERCENT AUTO 0.3 % (0-1); EOSINOPHILS ABSOLUTE AUTO 0.01 10^3/uL (0.00-1.50); EOSINOPHILS PERCENT AUTO 0.1 % (0-6); HEMATOCRIT 27.3 % (37.0-47.0); HEMOGLOBIN 8.5 g/dL (12.0-16.0); IMMATURE GRAN ABSOLUTE AUTO 0.02 10^3/uL (0.00-0.49); IMMATURE GRAN PERCENT AUTO 0.2 % (0.0-4.9); LYMPHOCYTES ABSOLUTE AUTO 3.38 10^3/uL (0.60-5.00); LYMPHOCYTES PERCENT AUTO 28.6 % (24-44); MEAN CORPUSCULAR HGB CONC 31.1 g/dL (32.0-36.0); MEAN CORPUSCULAR VOLUME 96.5 fL (83.0-97.0); MONOCYTES ABSOLUTE AUTO 0.86 10^3/uL (0.00-1.50); MONOCYTES PERCENT AUTO 7.3 % (0-10); NEUTROPHILS ABSOLUTE AUTO 7.53 x10^3/uL (1.80-8.00); NEUTROPHILS PERCENT AUTO 63.5 % (41-71); PLATELET COUNT,PLT 271 10^3/uL (150-400); RED BLOOD CELL COUNT 2.83 x10^6/uL (4.00-5.50); WHITE BLOOD CELL COUNT,WBC 11.8 10^3/uL (4.0-11.0)
[2022-12-29] MEDS: Piperacillin/Tazobactam 3.375 GM in Sodium Chloride 0.9% 100 ML IV SCH ×3 (08:03→13:52)
[2022-12-29] MEDS: Sennosides/Docusate Sodium 50-8.6 MG Tab PO SCH (08:09)
[2022-12-29] MEDS: Pantoprazole 40 MG Tab.CR PO SCH (08:09)
[2022-12-29] MEDS: Carvedilol 3.125 MG Tab PO SCH (08:09)
[2022-12-29] MEDS: Ferrous Sulfate 324 MG Tab.EC PO SCH (08:09)
[2022-12-29 08:10] LABS: CALCIUM 8.1 mg/dL (8.4-10.1); CREATININE 1.7 mg/dL (0.6-1.0); EST CRCL DRUG DOSING (CG) 18.01 mL/min; POTASSIUM,K 4.6 mEq/L (3.5-5.0)
[2022-12-29] MEDS: Multivitamins with Iron/Calcium/Folic Acid/Minerals Tab PO SCH (08:10)
[2022-12-29] MEDS: Gabapentin 300 MG Cap PO SCH ×2 (08:10→14:24)
[2022-12-29] MEDS: oxyCODONE 5 MG Tab PO SCH (08:10)
[2022-12-29] MEDS: DULoxetine 30 MG Cap PO SCH (08:10)
[2022-12-29] MEDS: Heparin Sodium 5,000 Units/ML Vial SUBCUT SCH (08:10)
[2022-12-29] MEDS: Albuterol/Ipratropium 3.0-0.5 MG/3 ML Neb Soln NEB SCH ×2 (08:11→14:24)
[2022-12-29 11:41] VITALS: BP 162/58; PULSE 109
[2022-12-29] MEDS: methylPREDNISolone Sodium Succinate 40 MG/1 ML SDV IVPUSH SCH (13:44)
[2022-12-29] MEDS ORDERED: Piperacillin/Tazobactam 3.375 GM in Sodium Chloride 0.9% 100 ML IV SCH (14:00)
[2022-12-29] MEDS ORDERED: LORazepam 2 MG/ML Syringe IVPUSH PRN (18:57)
[2022-12-29] MEDS: QUEtiapine 25 MG Tab PO SCH (19:22)
[2022-12-29] MEDS: Morphine 2 MG/ML SYRINGE IVPUSH PRN ×2 (19:51→21:46)
[2022-12-30] MEDS: Morphine 2 MG/ML SYRINGE IVPUSH PRN ×2 (02:40→09:33)
[2022-12-30] MEDS: fentaNYL 100 MCG/HR Transdermal Patch TRDERM SCH (09:32)
== END 2022-12-30 11:30 | disposition home or self-care (01) | DRG 194 ==
LOC: CC.ED 13:59 → CC.MS 15:43
PROVIDERS: ADMIT Nurse Practitioner; ATTEND Nurse Practitioner Family
DX: J18.9 Pneumonia, unspecified organism (principal); G93.40 Encephalopathy, unspecified; N17.9 Acute kidney failure, unspecified; N39.0 Urinary tract infection, site not specified; Z68.41 Body mass index [BMI] 40.0-44.9, adult; F03.90 Unspecified dementia, unspecified severity, without behavioral disturbance, psychotic disturbance, mood disturbance, and anxiety; G81.94 Hemiplegia, unspecified affecting left nondominant side; B91 Sequelae of poliomyelitis; N18.9 Chronic kidney disease, unspecified; E87.5 Hyperkalemia; K21.9 Gastro-esophageal reflux disease without esophagitis; E66.9 Obesity, unspecified; F32.A Depression, unspecified; Z51.5 Encounter for palliative care; K59.09 Other constipation; Y95 Nosocomial condition; F41.9 Anxiety disorder, unspecified; F31.9 Bipolar disorder, unspecified; E83.42 Hypomagnesemia; R21 Rash and other nonspecific skin eruption; Z20.822 Contact with and (suspected) exposure to COVID-19; Z88.7 Allergy status to serum and vaccine; Z88.8 Allergy status to other drugs, medicaments and biological substances; Z99.81 Dependence on supplemental oxygen; Z79.01 Long term (current) use of anticoagulants; Z79.899 Other long term (current) drug therapy; Z98.890 Other specified postprocedural states
CPT/HCPCS: 36415; 71045; 80048; 80053; 81001; 83735; 85025; 86140; 87804; 94640; 99223; 99232; 99233; 99238; 99285; A9270-GY; J0456; J0696; J1644; J2060; J2270; J2543; J2920; J3490; J7030; J7050; J7620-GY; U0002